=== PATIENT | female | born 1965 | race Caucasian/White ===

== ENCOUNTER 2023-07-03 09:41 | Outpatient (CLI) | payer OTHER ==
[2023-07-03 12:33] LABS: BASOPHILS % (AUTO) 0.4 %; EOSINOPHILS # (AUTO) 0.2 10^3/uL (0.0-0.7); EOSINOPHILS % (AUTO) 3.7 %; HCT - HEMATOCRIT 38.4 % (37.0-47.0); HGB - HEMOGLOBIN 12.6 g/dL (12.0-16.0); LYMPHOCYTES # (AUTO) 1.4 10^3/uL (1.5-3.5); LYMPHOCYTES % (AUTO) 29.7 %; MEAN CORPUSCULAR HEMOGLOBIN 31.3 pg (27.0-31.0); MEAN CORPUSCULAR HGB CONC 32.8 g/dL (32.0-36.0); MEAN CORPUSCULAR VOLUME 95.5 fL (81.0-99.0); MEAN PLATELET VOLUME 9.6 fL (7.9-10.8); MONOCYTES # (AUTO) 0.3 10^3/uL (0.0-1.0); MONOCYTES % (AUTO) 7.3 %; NEUTROPHILS # (AUTO) 2.7 10^3/uL (1.5-6.6); NEUTROPHILS % (AUTO) 58.7 %; PLT - PLATELET COUNT 229 10^3/uL (130-450); RED BLOOD COUNT 4.02 10^6/uL (4.20-5.40); RED CELL DISTRIBUTION WIDTH 13.2 % (12.0-15.0); WHITE BLOOD COUNT 4.6 x10^3/uL (4.8-10.8)
[2023-07-03 12:57] LABS: ALBUMIN 4.2 g/dL (3.2-5.5); ALBUMIN/GLOBULIN RATIO 1.9 (1.0-2.2); ALKALINE PHOSPHATASE 58 IU/L (42-121); ALT ALANINE AMINOTRANSFERASE 10 IU/L (10-60); AST ASPARTATE AMINOTRANSFERASE 19 IU/L (10-42); BILIRUBIN,TOTAL 0.6 mg/dL (0.2-1.0); BUN - BLOOD UREA NITROGEN 18 mg/dL (6-20); CALCIUM 9.2 mg/dL (8.5-10.3); CARBON DIOXIDE - CO2 30 mmol/L (21-32); CHLORIDE 106 mmol/L (101-111); CHOL/HDL RATIO 2.5 (<4.4); CHOLESTEROL 233 mg/dL; CREATININE 0.8 mg/dL (0.6-1.3); GFR - MDRD 73 (>89); GLUCOSE 104 mg/dL (74-104); HDL CHOLESTEROL 95 mg/dL; LDL CHOLESTEROL,CALCULATED 126 mg/dL; LDL/HDL RATIO 1.3 (<4.4); POTASSIUM 4.4 mmol/L (3.5-4.5); SODIUM 140 mmol/L (135-145); TOTAL PROTEIN 6.4 g/dL (6.4-8.9); TRIGLYCERIDES 60 mg/dL (48-352); VLDL CHOLESTEROL 12 mg/dL
[2023-07-03 13:18] LABS: THYROID STIMULATING HORMONE 1.29 uIU/mL (0.34-5.60)
== END 2023-07-03 09:42 | disposition home or self-care (01) ==
LOC: LAB.N 09:41
PROVIDERS: ATTEND Physician Assistant
DX: I10 Essential (primary) hypertension (principal); Z13.9 Encounter for screening, unspecified
CPT/HCPCS: 36415; 80053; 80061; 83721; 84443; 85025

== ENCOUNTER 2023-08-19 17:01 | Outpatient (CLI) | payer OTHER | END 2023-08-19 17:02 | disposition home or self-care (01) | LOC: LAB.N 17:01 | PROVIDERS: ATTEND Orthopaedic Surgery Adult Reconstructive Orthopaedic Surgery | DX: Z96.641 Presence of right artificial hip joint (principal) | CPT/HCPCS: 36415; 81599; 85651; 86140 ==

== ENCOUNTER 2023-09-10 09:53 | Outpatient (CLI) | payer OTHER ==
--- NOTE | 2023-09-10 10:13 | XRAY Report ---
PROCEDURE: Chest 2V INDICATIONS: SHORTNESS OF BREATH TECHNIQUE: 2 views of the chest were acquired. COMPARISON: None. FINDINGS: Surgical changes and devices: None. Lungs and pleura: Bilateral perihilar consolidations. No drainable pleural effusions. Mediastinum: Normal heart size Bones and chest wall: Degenerative changes. IMPRESSION: Bilateral perihilar consolidations. No drainable pleural effusions. Recommend surveillance imaging to exclude underlying mass. Report called to Jennie Workman. Reviewed by: Andrei Olivier MD on 09/10/2023 10:11 AM PDT Approved by: Andrei Olivier MD on 09/10/2023 10:11 AM PDT Station ID: [id number]
[2023-09-10 12:08] LABS: BASOPHILS % (AUTO) 0.1 %; HCT - HEMATOCRIT 33.1 % (37.0-47.0); HGB - HEMOGLOBIN 11.6 g/dL (12.0-16.0); LYMPHOCYTES % (AUTO) 2.7 %; MEAN CORPUSCULAR HEMOGLOBIN 30.4 pg (27.0-31.0); MEAN CORPUSCULAR VOLUME 86.9 fL (81.0-99.0); MEAN PLATELET VOLUME 10.6 fL (7.9-10.8); MONOCYTES % (AUTO) 0.7 %; NEUTROPHILS % (AUTO) 93.8 %; PLT - PLATELET COUNT 168 10^3/uL (130-450); RED BLOOD COUNT 3.81 10^6/uL (4.20-5.40); RED CELL DISTRIBUTION WIDTH 12.2 % (12.0-15.0); WHITE BLOOD COUNT 7.5 x10^3/uL (4.8-10.8)
[2023-09-10 12:10] LABS: ABNORMAL LYMPHS % (MANUAL) 0 %
[2023-09-10 12:31] LABS: ALBUMIN 2.8 g/dL (3.2-5.5); BILIRUBIN,TOTAL 0.7 mg/dL (0.2-1.0); CALCIUM 8.3 mg/dL (8.5-10.3); POTASSIUM 3.5 mmol/L (3.5-4.5); TOTAL PROTEIN 5.6 g/dL (6.4-8.9)
[2023-09-10 12:55] LABS: BAND NEUTROPHILS % (MANUAL) 15 %; LYMPHOCYTES # (MANUAL) 0.2 10^3/uL (1.5-3.5); LYMPHOCYTES % (MANUAL) 3 %; NEUTROPHILS # (MANUAL) 7.3 10^3/uL (1.5-6.6)
[2023-09-10 12:56] LABS: DIFFERENTIAL COMMENT MANUAL DIFFERENTIAL; PLATELET ESTIMATE, MANUAL NORMAL (130-450,000) (NORMAL); PLATELET MORPHOLOGY NORMAL APPEARANCE (NORMAL); RBC MORPHOLOGY (MULTIPLE) NORMAL APPEARANCE (NORMAL); WBC MORPHOLOGY (MULTIPLE) 2+ TOXIC GRANULATION (NORMAL)
== END 2023-09-10 09:54 | disposition home or self-care (01) ==
LOC: DI 09:53
PROVIDERS: ATTEND Nurse Practitioner
DX: R06.02 Shortness of breath (principal); R91.8 Other nonspecific abnormal finding of lung field
CPT/HCPCS: 36415; 80053; 85025; 85379

== ENCOUNTER 2023-09-10 13:37 | Inpatient (IN) | payer OTHER ==
[2023-09-10 14:42] LABS: BASOPHILS % (AUTO) 0.2 %; HCT - HEMATOCRIT 32.4 % (37.0-47.0); HGB - HEMOGLOBIN 11.6 g/dL (12.0-16.0); LYMPHOCYTES % (AUTO) 1.6 %; MEAN CORPUSCULAR HEMOGLOBIN 30.6 pg (27.0-31.0); MEAN CORPUSCULAR HGB CONC 35.8 g/dL (32.0-36.0); MEAN CORPUSCULAR VOLUME 85.5 fL (81.0-99.0); MEAN PLATELET VOLUME 9.3 fL (7.9-10.8); MONOCYTES % (AUTO) 0.7 %; NEUTROPHILS % (AUTO) 95.6 %; PLT - PLATELET COUNT 197 10^3/uL (130-450); RED BLOOD COUNT 3.79 10^6/uL (4.20-5.40); RED CELL DISTRIBUTION WIDTH 12.2 % (12.0-15.0); WHITE BLOOD COUNT 9.8 x10^3/uL (4.8-10.8)
[2023-09-10 14:46] LABS: ABNORMAL LYMPHS % (MANUAL) 0 %
[2023-09-10 14:59] LABS: LIPASE < 10 U/L (11-82); MAGNESIUM 1.4 mg/dL (1.7-2.3)
[2023-09-10 15:02] LABS: ALBUMIN 2.8 g/dL (3.2-5.5); ALBUMIN/GLOBULIN RATIO 0.9 (1.0-2.2); ALKALINE PHOSPHATASE 48 IU/L (42-121); ALT ALANINE AMINOTRANSFERASE 9 IU/L (10-60); AST ASPARTATE AMINOTRANSFERASE 20 IU/L (10-42); BILIRUBIN,TOTAL 0.7 mg/dL (0.2-1.0); BUN - BLOOD UREA NITROGEN 21 mg/dL (6-20); CALCIUM 8.3 mg/dL (8.5-10.3); CARBON DIOXIDE - CO2 22 mmol/L (21-32); CHLORIDE 82 mmol/L (101-111); CREATININE 0.9 mg/dL (0.6-1.3); GFR - MDRD 64 (>89); GLUCOSE 142 mg/dL (74-104); POTASSIUM 3.5 mmol/L (3.5-4.5); SODIUM 113 mmol/L (135-145); TOTAL PROTEIN 5.8 g/dL (6.4-8.9)
[2023-09-10 15:32] LABS: BAND NEUTROPHILS % (MANUAL) 23 %; LYMPHOCYTES # (MANUAL) 0.1 10^3/uL (1.5-3.5); LYMPHOCYTES % (MANUAL) 1 %; MONOCYTES # (MANUAL) 0.3 10^3/uL (0.0-1.0); NEUTROPHILS # (MANUAL) 9.4 10^3/uL (1.5-6.6)
[2023-09-10 15:34] LABS: DIFFERENTIAL COMMENT MANUAL DIFFERENTIAL; PLATELET ESTIMATE, MANUAL NORMAL (130-450,000) (NORMAL); PLATELET MORPHOLOGY NORMAL APPEARANCE (NORMAL); RBC MORPHOLOGY (MULTIPLE) NORMAL APPEARANCE (NORMAL); WBC MORPHOLOGY (MULTIPLE) 2+ TOXIC GRANULATION (NORMAL)
--- NOTE | 2023-09-10 17:09 | ED Physician Documentation ---
PD HPI URI - Stated complaint Stated Complaint: ABNORMAL LAB/XRAY - Chief complaint Chief Complaint: General - History obtained from History obtained from: Patient - History of Present Illness Timing - onset: How many weeks ago (onset just over a week ago of fevers, weakness, aches, cough and dyspnea. Seen at [facility] and had positive test for Influenza. Taking ibuprofen and tylenol and robitussin. No Rx given. Has had increased cough and dyspnea and also now sluggish thought procoess and some confusion.) Timing duration: Weeks (1) Timing details: Gradual onset, Still present Associated symptoms: Fever, Chills, Nasal congestion, Productive cough, NVD Contributing factors: Sick contact. No: Travel, Immunocompromised, COPD / asthma Similar symptoms before: Has not had sx before Recently seen: Clinic (clinic a week ago with Dx Influenza. Seen today again and had labs and CXR ordered. Referred to ER due to results of low sodium and abn CXR.) Review of Systems Constitutional: reports: Fever, Chills, Myalgias, Fatigue Nose: reports: Congestion Cardiac: denies: Chest pain / pressure Respiratory: reports: Dyspnea, Cough GI: reports: Nausea, Vomiting, Diarrhea. 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 : None HEENT: None Psych: None Musculoskeletal: None Derm: None - Past Surgical History Past Surgical History: Yes Ortho: Hip replacement - Present Medications Home Medications: Ambulatory Orders Medication Instructions Recorded Confirmed No Known Home Medications 09/10/23 09/10/23 - Allergies Allergies/Adverse Reactions: Allergies Allergy/AdvReac Type Severity Reaction Status Date / Time No Known Drug Allergies Allergy Verified 09/10/23 14:14 - Social History Does the pt smoke?: No Smoking Status: Never smoker Does the pt drink ETOH?: No Does the pt have substance abuse?: No - Immunizations Immunizations are current?: Yes - POLST Patient has POLST: No PD ED PE NORMAL - Vitals Vital signs reviewed: Yes - General General: Alert and oriented X 3 (she is alert and conversant but sluggish responses and slightly sleepy. ), No acute distress, Well developed/nourished - HEENT HEENT: PERRL, EOMI. No: Ears normal (right ear normal. Left canal is okay but TM with redness and apparent some purulence behind TM. No poerforation. ) - Neck Neck: Supple, no meningeal sign, No adenopathy - Cardiac Cardiac: RRR, No murmur - Respiratory Respiratory: No respiratory distress. No: Clear bilaterally (some exp wheezing diffuse and coarse sounds both mid lung jain. ) - Abdomen Abdomen: Soft, Non tender - Derm Derm: Normal color, Warm and dry - Extremities Extremities: Normal ROM s pain, No edema, No calf tenderness / cord - Neuro Neuro: No motor deficit, No sensory deficit, Normal speech Results - Vitals Vitals: Vital Signs - 24 hr 09/10/23 09/10/23 09/10/23 14:06 16:38 17:03 Temperature 37.4 C Heart Rate 85 83 82 Respiratory 16 24 18 Rate Blood Pressure 139/73 H 127/75 O2 Saturation 94 95 Oxygen O2 Source Room air - Labs Labs: Laboratory Tests 09/10/23 09/10/23 09/10/23 14:36 14:36 16:38 WBC 9.8 RBC 3.79 L Hgb 11.6 L Hct 32.4 L MCV 85.5 MCH 30.6 MCHC 35.8 RDW 12.2 Plt Count 197 MPV 9.3 Neut # (Auto) Not Reportable Lymph # (Auto) Not Reportable [place] # (Auto) Not Reportable Eos # (Auto) Not Reportable Baso # (Auto) Not Reportable Absolute Nucleated RBC Not Reportable Total Counted 100 Band Neuts % (Manual) 23 H Abnorm Lymph % (Manual) 0 Nucleated RBC % Not Reportable Neutrophils # (Manual) 9.4 H Lymphocytes # (Manual) 0.1 L Monocytes # (Manual) 0.3 Eosinophils # (Manual) 0.0 Basophils # (Manual) 0.0 Differential Comment MANUAL DIFFERENTIAL WBC Morphology 2+ TOXIC GRANULATION Platelet Estimate NORMAL (130-450,000) Platelet Morphology NORMAL APPEARANCE RBC Morph Micro Appear NORMAL APPEARANCE Sodium 113 L* 113 L* Potassium 3.5 Chloride 82 L Carbon Dioxide 22 Anion Gap 9.0 BUN 21 H Creatinine 0.9 Estimated GFR (MDRD) 64 L Glucose 142 H Calcium 8.3 L Magnesium 1.4 L Total Bilirubin 0.7 AST 20 ALT 9 L Alkaline Phosphatase 48 Total Protein 5.8 L Albumin 2.8 L Globulin 3.0 Albumin/Globulin Ratio 0.9 L Lipase < 10 L - Rads (name of study) chest xray Relevant Findings:: EMP independent interpretation of test (this was obtained outpt and my view is signfiicant bilateral infiltrates, right middle lobe and left lingula. ) PD Medical Decision Making - ED course Complexity details: considered differential (flu illness with cough, V/D and poor intake c/w dehydration and insensible losses with electrolytes. Had low sodium outpt lab, which was confirmed with repeat test in ER. Sodium 113.), d/w patient, d/w infrastructure consultant (Hospitalist Dr. Noel, who will see pt in the ER and place in hospital. ) Reviewed Lab Results: WBC normal at 9.8 but has 23% bandemia. This likely relates to pneumonia and also left otitis media. Does not have menigeal signs. Other labs with potassium 3.5, mag 1.4, sodium 113. Renal function is okay. Chest xray done outpt just ea rlir to ED check in showing signficant bilateral infiltrates. ED course: given some fluid bolus for hydration with NS 500 ml. I did not want to be too aggressive with sodium replacement. Then given mainenance infusion. Also given mag IV. Gave Rocephin and ZIthromax for pneumonia and otitis. Departure - Departure Disposition: 66 [facility] DC/Xfer Clinical Impression: Dehydration, Acute hyponatremia, Confusion and disorientation Bilateral pneumonia Qualifiers: Pneumonia type: due to unspecified organism Lung location: unspecified part of lung Qualified Code(s): J18.9 - Pneumonia, unspecified organism Otitis media Qualifiers: Otitis media type: suppurative Chronicity: acute Laterality: left Recurrence: non-recurrent Spontaneous tympanic membrane rupture: without spontaneous rupture Qualified Code(s): H66.002 - Acute suppurative otitis media without spontaneous rupture of ear drum, left ear Condition: Stable Record reviewed to determine appropriate education?: Yes Discharge Date/Time: 09/10/23 18:35
[2023-09-10] MEDS: KETOROLAC 15 MG/ML VIAL IVP STA (17:12)
[2023-09-10] MEDS: HYDROmorphone 0.5 MG/0.5 ML SYRINGE IVP STA (17:14)
[2023-09-10] MEDS: SODIUM CHLORIDE 0.9% 500 ML IV STA (17:31)
[2023-09-10] MEDS: ALBUTEROL 1 PUFF INH STA (17:31)
[2023-09-10] MEDS: cefTRIAXone 1 GM VIAL IVP STA (17:35)
[2023-09-10] MEDS: MAGNESIUM SULFATE 2 GRAM 2 GM/50 ML BAG IV ONE (17:42)
--- NOTE | 2023-09-10 18:00 | HISTORY & PHYSICAL EXAMINATION ---
Chief Complaint - Chief Complaint Chief Complaint: Abnormal Chest x-ray History of Present Illness - Admitted From Admitted From:: Emergency Room - History Obtained From Records Reviewed: Yes History obtained from: Patient and ER Physician, Dr. Kris Wilkins - History of Present Illness HPI Comment/Other: Yodit Noriega is a 58-year-old woman who presented to the emergency room because of an abnormal x-ray. She reports she recently had influenza. She reports she has not been able to keep any food down recently and has had several episodes of vomiting. Chest x-ray revealed opacities in her right upper lobe, right middle lobe, right lower lobe left upper lobe, lingula and lower lobe.She was evaluated at a local clinic and diagnosed with influenza B. Patient is alert and answering all questions. She does complain of weakness. Laboratory workup revealed a serum sodium of 113. White blood cell count is normal at 9.8K and differential revealed 23 bands. History - Past Medical History Cardiovascular: reports: None Respiratory: reports: None Neuro: reports: None Endocrine/Autoimmune: reports: None GI: reports: None LEAD OPERATOR: reports: None : reports: None HEENT: reports: None Psych: reports: None Musculoskeletal: reports: None Derm: reports: None MRSA Hx?: No - Past Surgical History Ortho: reports: Hip replacement - Substance History Use: Uses substance without health or social issues: Alcohol - POLST Patient has POLST: No Meds/Allgy - Home Medications Home Medications: Ambulatory Orders Medication Instructions Recorded Confirmed No Known Home Medications 09/10/23 09/10/23 - Allergies Allergies/Adverse Reactions: Allergies Allergy/AdvReac Type Severity Reaction Status Date / Time No Known Drug Allergies Allergy Verified 09/10/23 14:14 Review of Systems - Constitutional Constitutional: reports: Fatigue, Malaise, Weakness - Gastrointestinal Gastrointestinal: reports: Diarrhea, Nausea, Vomiting Exam - Vital Signs Vital Signs: Vital Signs x48h Temp Pulse Resp BP Pulse Ox 09/10/23 17:03 82 18 09/10/23 16:38 83 24 127/75 95 09/10/23 14:06 37.4 C 85 16 139/73 H 94 - Physical Exam General Appearance: positive: No acute distress, Alert Eyes Bilateral: positive: Normal inspection, PERRL Neck: positive: No JVD, Trachea midline Respiratory: positive: Other (Good air exchange in all lung jain no wheezing no crackles.) Cardiovascular: positive: Other (Positive S1-S2 no extra heart sounds.) Abdomen: positive: Non-tender, Nml bowel sounds, No distention Extremities: positive: Non-tender, No pedal edema Neurologic/Psychiatric: positive: Oriented x3, Motor nml Conclusion/Plan - Problem List (1) Hyponatremia Conclusion/Plan: Patient currently has severe hyponatremia with a serum sodium of 113. This most likely is a chronic process. Severe hyponatremia can be life-threatening and warrants admission to an intensive care unit. Hyponatremia of this degree can have significant consequences to include seizure and possibly osmotic demyelination syndrome if the serum sodium is corrected too rapidly. Goal is to correct the serum sodium by 3-6 mEq over the next 24 hours. (2) Influenza Conclusion/Plan: Patient recently diagnosed with influenza. Influenza may be the cause of her abnormalities on her chest x-ray. Treatment is supportive at this time. I cannot exclude a secondary pneumonia and empiric treatment will be initiated with ceftriaxone and doxycycline. - Lab Results Fish Bones: 09/11/23 03:31 09/12/23 12:07
[2023-09-10] MEDS: AZITHROMYCIN INJ 500 MG in SODIUM CHLORIDE 0.9% 250 ML IV STA (18:46)
[2023-09-10] MEDS: SODIUM CHLORIDE 0.9% 1,000 ML IV STA (18:49)
[2023-09-10] MEDS ORDERED: ONDANSETRON ODT 4 MG TABLET TL PRN (18:59)
[2023-09-10] MEDS: ONDANSETRON 4 MG/2 ML VIAL IVP PRN (19:05)
[2023-09-10] MEDS: SODIUM CHLORIDE FLUSH 0.9% 10 ML SYRINGE IVP PRN (19:05)
[2023-09-10] MEDS ORDERED: POTASSIUM CHLORIDE 20 MEQ TABLET PO SCH (20:00)
[2023-09-10] MEDS: POTASSIUM CHLOR 10 MEQ/100 ML 10 MEQ/100 ML BAG IV SCH (20:49)
[2023-09-10] MEDS: ENOXAPARIN 40 MG/0.4 ML SYRINGE SUBQ SCH (20:49)
[2023-09-10 20:57] LABS: BILIRUBIN,URINE NEGATIVE (NEGATIVE); GLUCOSE, URINE (UA) NEGATIVE (NEGATIVE); KETONES,URINE (UA) NEGATIVE (NEGATIVE); LEUKOCYTE ESTERASE, URINE NEGATIVE (NEGATIVE); NITRITE,URINE NEGATIVE (NEGATIVE); OCCULT BLOOD,URINE SMALL (NEGATIVE); PROTEIN,URINE 30 mg/dL (NEGATIVE); UROBILINOGEN,URINE 0.2 (NORMAL) E.U./dL (NORMAL)
[2023-09-10 21:10] LABS: CLARITY,URINE HAZY (CLEAR)
[2023-09-10 21:14] LABS: AMORPHOUS SEDIMENT,UR Rare /LPF; BACTERIA,URINE Few /HPF (None Seen); RBC,URINE 0-5 /HPF (0-5); SQUAMOUS EPITHELIAL CELL,UR MANY Squamous (<= Few); WBC,URINE 0-3 /HPF (0-5)
[2023-09-10] MEDS: cefTRIAXone 1 GM in SODIUM CHLORIDE 0.9% MINIBAG 100 ML IV SCH (22:35)
[2023-09-11] MEDS: SODIUM CHLORIDE FLUSH 0.9% 10 ML SYRINGE IVP SCH (00:16)
[2023-09-11 03:45] LABS: BASOPHILS % (AUTO) 0.2 %; HCT - HEMATOCRIT 29.2 % (37.0-47.0); HGB - HEMOGLOBIN 10.6 g/dL (12.0-16.0); LYMPHOCYTES % (AUTO) 1.8 %; MEAN CORPUSCULAR HEMOGLOBIN 31.5 pg (27.0-31.0); MEAN CORPUSCULAR HGB CONC 36.3 g/dL (32.0-36.0); MEAN CORPUSCULAR VOLUME 86.6 fL (81.0-99.0); MEAN PLATELET VOLUME 9.6 fL (7.9-10.8); MONOCYTES % (AUTO) 0.9 %; NEUTROPHILS % (AUTO) 94.3 %; PLT - PLATELET COUNT 203 10^3/uL (130-450); RED BLOOD COUNT 3.37 10^6/uL (4.20-5.40); RED CELL DISTRIBUTION WIDTH 12.2 % (12.0-15.0); WHITE BLOOD COUNT 9.6 x10^3/uL (4.8-10.8)
[2023-09-11 03:48] LABS: CALCIUM, IONIZED 1.06 mmol/L (1.15-1.33); VBG PH 7.444 (7.31-7.41)
[2023-09-11 03:53] LABS: ABNORMAL LYMPHS % (MANUAL) 0 %
[2023-09-11 03:59] LABS: MAGNESIUM 1.9 mg/dL (1.7-2.3); PHOSPHORUS 3.7 mg/dL (2.5-5.0)
[2023-09-11 04:21] LABS: CREATININE 0.9 mg/dL (0.6-1.3); POTASSIUM 3.8 mmol/L (3.5-4.5)
[2023-09-11 04:31] LABS: BAND NEUTROPHILS % (MANUAL) 24 %; DIFFERENTIAL COMMENT MANUAL DIFFERENTIAL; LYMPHOCYTES # (MANUAL) 0.2 10^3/uL (1.5-3.5); LYMPHOCYTES % (MANUAL) 2 %; MONOCYTES # (MANUAL) 0.1 10^3/uL (0.0-1.0); NEUTROPHILS # (MANUAL) 9.3 10^3/uL (1.5-6.6); PLATELET ESTIMATE, MANUAL NORMAL (130-450,000) (NORMAL); RBC MORPHOLOGY (MULTIPLE) NORMAL APPEARANCE (NORMAL)
[2023-09-11] MEDS: POTASSIUM CHLOR 10 MEQ/100 ML 10 MEQ/100 ML BAG IV SCH (04:47)
[2023-09-11] MEDS: CALCIUM CARBONATE CHEW 500 MG TABLET PO SCH (04:47)
[2023-09-11 07:47] LABS: CALCIUM 8.6 mg/dL (8.5-10.3); CREATININE 0.8 mg/dL (0.6-1.3); POTASSIUM 4.1 mmol/L (3.5-4.5)
[2023-09-11] MEDS: DEXTROSE 5% 1,000 ML IV SCH ×4 (08:26→23:08)
[2023-09-11] MEDS: DOXYCYCLINE INJ 100 MG in SODIUM CHLORIDE 0.9% MINIBAG 100 ML IV SCH (08:44)
[2023-09-11] MEDS: SODIUM CHLORIDE 0.9% IV ONE (12:04)
[2023-09-11] MEDS: DESMOPRESSIN IV ONE (12:04)
--- NOTE | 2023-09-11 12:13 | PHARMACY PROGRESS NOTE ---
- Best Possible Medication History Admit Date and Time: 09/10/23 4007 Processed by: Nursing Medications reviewed in ED?: Yes Medication History completed: Yes As the person ultimately responsible for medication therapy, providers are able to order a medication from an existing home medication list in [facility] via the "Reconcile Routine" prior to Confirmation of that medication by production support specialist. Such practice is discouraged except when the physician, in their clinical judgment, deems that a medical need exists for a medication without regard to previous use.
[2023-09-11] MEDS: DEXTROSE 5% 500 ML IV ONE ×2 (14:10→17:14)
[2023-09-11] MEDS: POTASSIUM CHLORIDE 20 MEQ TABLET PO SCH (14:43)
[2023-09-11] MEDS ORDERED: DEXTROSE 5% 500 ML IV ONE (15:08)
[2023-09-11] MEDS: ACETAMINOPHEN 325 MG TABLET PO PRN (20:28)
[2023-09-11] MEDS: cefTRIAXone 2 GM in SODIUM CHLORIDE 0.9% MINIBAG 100 ML IV SCH (20:29)
[2023-09-11] MEDS ORDERED: SODIUM CHLORIDE 0.9% IV ONE (21:00)
[2023-09-11] MEDS ORDERED: DESMOPRESSIN IV ONE (21:00)
[2023-09-11] MEDS: DESMOPRESSIN 4 MCG/ML AMP IVP SCH (21:28)
--- NOTE | 2023-09-11 22:30 | PROVIDER PROGRESS NOTE ---
Assessment/Plan - Problem List (1) Hyponatremia Assessment/Plan: Patient currently has severe hyponatremia with a serum sodium of 113. This most likely is a chronic process. Severe hyponatremia can be life-threatening and warrants admission to an intensive care unit. Hyponatremia of this degree can have significant consequences to include seizure and possibly osmotic demyelination syndrome if the serum sodium is corrected too rapidly. Goal is to correct the serum sodium by 3-6 mEq over the next 24 hours. Overnight, patient's serum sodium increased very rapidly and this morning her serum sodium was 124. Plan is to give D5W in addition to DDAVP as needed throughout the day with goal of decreasing the serum sodium to [id number] over the next 24 hours. Over the next 24 hours patient will require frequent serum sodiums to be drawn. She is at moderate/high risk of developing osmotic demyelination syndrome with a rapid increase in her serum sodium. Patient remains critically ill and continues to warrant treatment in an ICU setting. (2) Influenza Conclusion/Plan: Patient recently diagnosed with influenza. Influenza may be the cause of her abnormalities on her chest x-ray. Treatment is supportive at this time. I cannot exclude a secondary pneumonia and empiric treatment will be initiated with ceftriaxone and doxycycline. - Current Meds Current Meds: Current Medications Generic Name Dose Route Start Last Admin Trade Name Freq PRN Reason Stop Dose Admin Acetaminophen 650 mg 09/11/23 20:14 09/11/23 20:28 Acetaminophen 325 Mg Tablet PO 650 mg Q4HR PRN Administration Pain or Fever > 38C (100.4F) Enoxaparin Sodium 40 mg 09/10/23 21:00 09/11/23 20:29 Enoxaparin 40 Mg/0.4 Ml Syringe SUBQ 40 mg QPM BRIDGER Administration Ceftriaxone Sodium 2 gm/ 100 mls @ 200 mls/hr 09/11/23 21:00 09/11/23 21:11 Sodium Chloride IV Infused DAILY BRIDGER Infusion Doxycycline Hyclate 100 mg/ 100 mls @ 100 mls/hr 09/11/23 09:00 09/11/23 21:20 Sodium Chloride IV 100 mls/hr BID BRIDGER Administration Dextrose 1,000 mls @ 125 mls/hr 09/11/23 11:39 09/11/23 21:19 D5w IV 125 mls/hr .Q8H BRIDGER Administration Ondansetron HCl 4 mg 09/10/23 19:00 09/10/23 19:05 Ondansetron 4 Mg/2 Ml Vial IVP 4 mg Q4HR PRN Administration Nausea / Vomiting Sodium Chloride 10 ml 09/11/23 01:00 09/11/23 20:30 Sodium Chloride Flush 0.9% 10 Ml Syringe IVP 10 ml 0100,0900,1700 BRIDGER Administration Sodium Chloride 10 ml 09/10/23 17:50 09/11/23 03:25 Sodium Chloride Flush 0.9% 10 Ml Syringe IVP 10 ml PRN PRN Administration NEEDED PER PROVIDER ORDERS - Lab Result Fish Bone Diagrams: 09/11/23 03:31 09/12/23 17:02 - Additional Planning My Orders: My Active Orders 09/11/23 01:00 Sodium Chloride Flush 0.9% [Normal Saline Flush 0.9%] 10 ml IVP 0100,0900,1700 09/11/23 09:00 Doxycycline Inj [Vibramycin Inj] 100 mg Sodium Chloride 0.9% Minibag [Normal Saline 0.9% Minibag] 100 ml IV BID 09/11/23 Lunch Regular Diet [DIET] 09/11/23 11:39 Dextrose 5% [D5w] 1,000 ml IV 125 mls/hr 09/11/23 14:39 Miscellaenous Nursing Order [RC] ONCE 09/11/23 16:47 Miscellaenous Nursing Order [RC] ONCE 09/11/23 20:14 Acetaminophen [Tylenol] 650 mg PO Q4HR PRN 09/11/23 21:00 cefTRIAXone [Rocephin] 2 gm Sodium Chloride 0.9% Minibag [Normal Saline 0.9% Minibag] 100 ml IV DAILY 09/11/23 22:16 POTASSIUM [CHEM] Timed SODIUM [CHEM] Routine 09/12/23 05:00 CALCIUM, IONIZED ([facility]) [BG] DAILYLAB MAGNESIUM [CHEM] DAILYLAB PHOSPHORUS [CHEM] DAILYLAB 09/13/23 05:00 CALCIUM, IONIZED ([facility]) [BG] DAILYLAB MAGNESIUM [CHEM] DAILYLAB PHOSPHORUS [CHEM] DAILYLAB Subjective - Subjective Patient Reports: Other (Alert. Continues to complain of intermittent nausea. Denies recent vomiting. Denies chest pain shortness of breath. No other complaints at this time.) Objective Vital Signs: Vital Signs - 24 hr 09/10/23 09/11/23 09/11/23 23:00 00:00 01:00 Temperature 36.4 C L Heart Rate [ 72 73 82 Monitoring electrodes] Respiratory 30 H 27 H 29 H Rate Blood Pressure 103/56 L 119/76 119/63 [Right Brachial artery] O2 Saturation 92 94 92 If not protocol : Oxygen Flow, liters/minute 09/11/23 09/11/23 09/11/23 02:00 03:00 04:00 Temperature 36.9 C Heart Rate [ 72 72 75 Monitoring electrodes] Respiratory 26 H 31 H 21 Rate Blood Pressure 102/59 L 98/70 93/57 L [Right Brachial artery] O2 Saturation 93 92 91 L If not protocol : Oxygen Flow, liters/minute 09/11/23 09/11/23 09/11/23 05:00 06:00 07:00 Temperature Heart Rate [ 83 84 84 Monitoring electrodes] Respiratory 30 H 36 H 35 H Rate Blood Pressure 115/60 114/68 115/68 [Right Brachial artery] O2 Saturation 94 94 94 If not protocol : Oxygen Flow, liters/minute 09/11/23 09/11/23 09/11/23 09:00 13:00 17:00 Temperature 98.3 C H 36.8 C 36.9 C Heart Rate [ 77 80 Monitoring electrodes] Respiratory 32 H 31 H 19 Rate Blood Pressure 116/61 115/63 127/60 [Right Brachial artery] O2 Saturation 92 93 92 If not protocol : Oxygen Flow, liters/minute 09/11/23 09/11/23 09/11/23 19:46 19:50 20:00 Temperature 36.9 C Heart Rate [ 85 Monitoring electrodes] Respiratory 33 H 20 Rate Blood Pressure 150/80 H [Right Brachial artery] O2 Saturation 91 L 96 97 If not protocol 2 2 : Oxygen Flow, liters/minute 09/11/23 09/11/23 21:00 22:00 Temperature Heart Rate [ 81 68 Monitoring electrodes] Respiratory 26 H 31 H Rate Blood Pressure 136/71 H 120/69 [Right Brachial artery] O2 Saturation 95 95 If not protocol 2 2 : Oxygen Flow, liters/minute Oxygen O2 Source Nasal cannula I&O (Last 24 Hrs): Intake and Output Totals x24h 09/09/23 09/10/23 09/11/23 23:59 23:59 23:59 Intake Total 1102.5 6474.503 Output Total 550 5125 Balance 552.5 1349.503 General: Alert, Oriented x3, No acute distress HEENT: Atraumatic Neck: Supple, No JVD Neuro: Alert, Non Focal Cardiovascular: Other (Positive S1-S2 no extra heart sounds.) Respiratory: Other (Good air exchange in all lung jain no wheezing no crackles.) Abdomen: Other (Positive S1-S2 no extra heart sounds) Extremities: No cyanosis, No edema Skin: No rashes - Results Results: Laboratory Results WBC 9.6 x10^3/uL (4.8-10.8) 09/11/23 03:31 RBC 3.37 10^6/uL (4.20-5.40) L 09/11/23 03:31 Hgb 10.6 g/dL (12.0-16.0) L 09/11/23 03:31 Hct 29.2 % (37.0-47.0) L 09/11/23 03:31 MCV 86.6 fL (81.0-99.0) 09/11/23 03:31 MCH 31.5 pg (27.0-31.0) H 09/11/23 03:31 MCHC 36.3 g/dL (32.0-36.0) H 09/11/23 03:31 RDW 12.2 % (12.0-15.0) 09/11/23 03:31 Plt Count 203 10^3/uL (130-450) 09/11/23 03:31 MPV 9.6 fL (7.9-10.8) 09/11/23 03:31 Neut # (Auto) Not Reportable 09/11/23 03:31 Lymph # (Auto) Not Reportable 09/11/23 03:31 [place] # (Auto) Not Reportable 09/11/23 03:31 Eos # (Auto) Not Reportable 09/11/23 03:31 Baso # (Auto) Not Reportable 09/11/23 03:31 Absolute Nucleated RBC Not Reportable 09/11/23 03:31 Total Counted 100 09/11/23 03:31 Band Neuts % (Manual) 24 % (0-10) H 09/11/23 03:31 Abnorm Lymph % (Manual) 0 % 09/11/23 03:31 Nucleated RBC % Not Reportable 09/11/23 03:31 Neutrophils # (Manual) 9.3 10^3/uL (1.5-6.6) H 09/11/23 03:31 Lymphocytes # (Manual) 0.2 10^3/uL (1.5-3.5) L 09/11/23 03:31 Monocytes # (Manual) 0.1 10^3/uL (0.0-1.0) 09/11/23 03:31 Eosinophils # (Manual) 0.0 10^3/uL (0-0.7) 09/11/23 03:31 Basophils # (Manual) 0.0 10^3/uL (0-0.1) 09/11/23 03:31 Differential Comment MANUAL DIFFERENTIAL 09/11/23 03:31 WBC Morphology 2+ TOXIC GRANULATION (NORMAL) 09/10/23 14:36 Platelet Estimate NORMAL (130-450,000) (NORMAL) 09/11/23 03:31 Platelet Morphology NORMAL APPEARANCE (NORMAL) 09/10/23 14:36 RBC Morph Micro Appear NORMAL APPEARANCE (NORMAL) 09/11/23 03:31 VBG pH 7.444 (7.31-7.41) H 09/11/23 03:31 Ionized Calcium 1.06 mmol/L (1.15-1.33) L 09/11/23 03:31 Sodium 120 mmol/L (135-145) L* 09/11/23 19:28 Potassium 3.4 mmol/L (3.5-4.5) L 09/11/23 13:31 Chloride 93 mmol/L (101-111) L 09/11/23 07:28 Carbon Dioxide 22 mmol/L (21-32) 09/11/23 07:28 Anion Gap 9.0 (6-13) 09/11/23 07:28 BUN 18 mg/dL (6-20) 09/11/23 07:28 Creatinine 0.8 mg/dL (0.6-1.3) 09/11/23 07:28 Estimated GFR (MDRD) 73 (>89) L 09/11/23 07:28 Glucose 90 mg/dL (74-104) 09/11/23 07:28 Calcium 8.6 mg/dL (8.5-10.3) 09/11/23 07:28 Phosphorus 3.7 mg/dL (2.5-5.0) 09/11/23 03:31 Magnesium 1.9 mg/dL (1.7-2.3) 09/11/23 03:31 Total Bilirubin 0.7 mg/dL (0.2-1.0) 09/10/23 14:36 AST 20 IU/L (10-42) 09/10/23 14:36 ALT 9 IU/L (10-60) L 09/10/23 14:36 Alkaline Phosphatase 48 IU/L (42-121) 09/10/23 14:36 Total Protein 5.8 g/dL (6.4-8.9) L 09/10/23 14:36 Albumin 2.8 g/dL (3.2-5.5) L 09/10/23 14:36 Globulin 3.0 g/dL (2.1-4.2) 09/10/23 14:36 Albumin/Globulin Ratio 0.9 (1.0-2.2) L 09/10/23 14:36 Lipase < 10 U/L (11-82) L 09/10/23 14:36 Urine Color YELLOW 09/10/23 20:30 Urine Clarity HAZY (CLEAR) 09/10/23 20:30 Urine pH 6.0 PH (5.0-7.5) 09/10/23 20:30 Ur Specific [place] 1.015 (1.002-1.030) 09/10/23 20:30 Urine Protein 30 mg/dL (NEGATIVE) H 09/10/23 20:30 Urine Glucose (UA) NEGATIVE mg/dL (NEGATIVE) 09/10/23 20:30 Urine Ketones NEGATIVE mg/dL (NEGATIVE) 09/10/23 20:30 Urine Occult Blood SMALL (NEGATIVE) H 09/10/23 20:30 Urine Nitrite NEGATIVE (NEGATIVE) 09/10/23 20:30 Urine Bilirubin NEGATIVE (NEGATIVE) 09/10/23 20:30 Urine Urobilinogen 0.2 (NORMAL) E.U./dL (NORMAL) 09/10/23 20:30 Ur Leukocyte Esterase NEGATIVE (NEGATIVE) 09/10/23 20:30 Urine RBC 0-5 /HPF (0-5) 09/10/23 20:30 Urine WBC 0-3 /HPF (0-5) 09/10/23 20:30 Ur Squamous Epith Cells MANY Squamous (<= Few) H 09/10/23 20:30 Amorphous Sediment Rare /LPF 09/10/23 20:30 Urine Bacteria Few /HPF (None Seen) 09/10/23 20:30 Ur Microscopic Review INDICATED 09/10/23 20:30 Urine Culture Comments NOT INDICATED 09/10/23 20:30 Nasal Screen MRSA (PCR) NEGATIVE (NEGATIVE) 09/10/23 18:36
[2023-09-11] MEDS: POTASSIUM CHLORIDE 20 MEQ TABLET PO ONE (23:05)
[2023-09-12 03:37] LABS: CALCIUM, IONIZED 1.08 mmol/L (1.15-1.33); VBG PH 7.472 (7.31-7.41)
[2023-09-12 03:46] LABS: MAGNESIUM 1.6 mg/dL (1.7-2.3)
[2023-09-12 03:51] LABS: PHOSPHORUS 3.4 mg/dL (2.5-5.0)
[2023-09-12] MEDS: POTASSIUM CHLORIDE 20 MEQ TABLET PO ONE (05:44)
[2023-09-12] MEDS: CALCIUM CARBONATE CHEW 500 MG TABLET PO SCH ×2 (05:46→18:37)
[2023-09-12] MEDS: MAGNESIUM OXIDE 400 MG TABLET PO ONE (05:48)
[2023-09-12] MEDS: polyethylene glycoL 3350 17 GM PACKET PO SCH (08:29)
[2023-09-12 12:20] LABS: MAGNESIUM 1.5 mg/dL (1.7-2.3)
[2023-09-12 12:26] LABS: PHOSPHORUS 3.5 mg/dL (2.5-5.0)
[2023-09-12 12:29] LABS: CALCIUM 8.1 mg/dL (8.5-10.3); CREATININE 0.6 mg/dL (0.6-1.3)
[2023-09-12] MEDS: MAGNESIUM OXIDE 400 MG TABLET PO SCH (14:37)
--- NOTE | 2023-09-12 16:54 | PROVIDER PROGRESS NOTE ---
Assessment/Plan - Problem List (1) Hyponatremia Assessment/Plan: Patient currently has severe hyponatremia with a serum sodium of 113. This most likely is a chronic process. Severe hyponatremia can be life-threatening and warrants admission to an intensive care unit. Hyponatremia of this degree can have significant consequences to include seizure and possibly osmotic demyelination syndrome if the serum sodium is corrected too rapidly. Overnight the patient's serum sodium remained between 118 and 120. Plan for today is to withhold any DDAVP and discontinue the continuous drip of D5W. Patient will also be placed on a fluid restriction of 1500 mL/day. We will continue to monitor the serum sodium closely with goal of increasing the serum sodium by 3 to 6 mEq over the next 24 hours. (2) Influenza Conclusion/Plan: Patient recently diagnosed with influenza. Influenza may be the cause of her abnormalities on her chest x-ray. Treatment is supportive at this time. Continue ceftriaxone and doxycycline for empiric antibiotic coverage. - Current Meds Current Meds: Current Medications Generic Name Dose Route Start Last Admin Trade Name Freq PRN Reason Stop Dose Admin Acetaminophen 650 mg 09/11/23 20:14 09/12/23 16:27 Acetaminophen 325 Mg Tablet PO 650 mg Q4HR PRN Administration Pain or Fever > 38C (100.4F) Enoxaparin Sodium 40 mg 09/10/23 21:00 09/11/23 20:29 Enoxaparin 40 Mg/0.4 Ml Syringe SUBQ 40 mg QPM BRIDGER Administration Ceftriaxone Sodium 2 gm/ 100 mls @ 200 mls/hr 09/11/23 21:00 09/12/23 10:40 Sodium Chloride IV Infused DAILY BRIDGER Infusion Doxycycline Hyclate 100 mg/ 100 mls @ 100 mls/hr 09/11/23 09:00 09/12/23 09:35 Sodium Chloride IV Infused BID BRIDGER Infusion Magnesium Oxide 400 mg 09/12/23 14:00 09/12/23 14:37 Magnesium Oxide 400 Mg Tablet PO 09/12/23 20:01 400 mg Q6H BRIDGER Administration Protocol Ondansetron HCl 4 mg 09/10/23 19:00 09/10/23 19:05 Ondansetron 4 Mg/2 Ml Vial IVP 4 mg Q4HR PRN Administration Nausea / Vomiting Polyethylene Glycol 17 gm 09/12/23 09:00 09/12/23 08:29 Polyethylene Glycol 3350 17 Gm Packet PO Not Given DAILY BRIDGER Sodium Chloride 10 ml 09/11/23 01:00 09/12/23 16:30 Sodium Chloride Flush 0.9% 10 Ml Syringe IVP 10 ml 0100,0900,1700 BRIDGER Administration Sodium Chloride 10 ml 09/10/23 17:50 09/11/23 03:25 Sodium Chloride Flush 0.9% 10 Ml Syringe IVP 10 ml PRN PRN Administration NEEDED PER PROVIDER ORDERS - Lab Result Fish Bone Diagrams: 09/11/23 03:31 09/12/23 17:02 - Additional Planning My Orders: My Active Orders 09/11/23 20:14 Acetaminophen [Tylenol] 650 mg PO Q4HR PRN 09/11/23 21:00 [id number] [Rocephin] 2 gm Sodium Chloride 0.9% Minibag [Normal Saline 0.9% Minibag] 100 ml IV DAILY 09/12/23 09:00 polyethylene glycoL 3350 [Miralax] 17 gm PO DAILY 09/12/23 10:39 Fluid Restriction [RC] IOSHIFT 09/12/23 10:40 Daily Weight [RC] 0600 Miscellaenous Nursing Order [RC] QSHIFT 09/12/23 14:00 Magnesium Oxide [Mag Ox] 400 mg PO Q6H 09/12/23 14:20 Zolpidem [Ambien] 5 mg PO QPM PRN 09/12/23 16:52 SODIUM [CHEM] Routine Subjective - Subjective Patient Reports: Other (Alert. Tolerating diet. She states she overall is feeling better but is not at her baseline. She denies shortness of breath chest pain and abdominal pain.) Objective Vital Signs: Vital Signs - 24 hr 09/11/23 09/11/23 09/11/23 17:00 19:46 19:50 Temperature 36.9 C Heart Rate [ 80 Monitoring electrodes] Respiratory 19 33 H Rate Blood Pressure 127/60 [Right Brachial artery] O2 Saturation 92 91 L 96 If not protocol 2 : Oxygen Flow, liters/minute 09/11/23 09/11/23 09/11/23 20:00 21:00 22:00 Temperature 36.9 C Heart Rate [ 85 81 68 Monitoring electrodes] Respiratory 20 26 H 31 H Rate Blood Pressure 150/80 H 136/71 H 120/69 [Right Brachial artery] O2 Saturation 97 95 95 If not protocol 2 2 2 : Oxygen Flow, liters/minute 09/11/23 09/12/23 09/12/23 23:00 00:00 01:00 Temperature 36.6 C Heart Rate [ 78 71 64 Monitoring electrodes] Respiratory 26 H 37 H 28 H Rate Blood Pressure 131/80 H 122/60 116/69 [Right Brachial artery] O2 Saturation 97 95 94 If not protocol 2 2 2 : Oxygen Flow, liters/minute 09/12/23 09/12/23 09/12/23 02:00 03:00 05:00 Temperature 37.1 C Heart Rate [ 74 76 62 Monitoring electrodes] Respiratory 24 20 29 H Rate Blood Pressure 146/77 H 124/64 133/73 H [Right Brachial artery] O2 Saturation 96 93 96 If not protocol 2 2 2 : Oxygen Flow, liters/minute 09/12/23 09/12/23 09/12/23 06:00 07:00 07:51 Temperature 36.9 C Heart Rate [ 78 74 Monitoring electrodes] Respiratory 26 H 27 H Rate Blood Pressure 149/83 H 144/88 H [Right Brachial artery] O2 Saturation 93 92 If not protocol : Oxygen Flow, liters/minute 09/12/23 09/12/23 09/12/23 08:12 12:56 16:47 Temperature 36.4 C L 37.1 C Heart Rate [ 79 63 66 Monitoring electrodes] Respiratory 25 H 23 25 H Rate Blood Pressure 140/75 H 132/69 H 139/77 H [Right Brachial artery] O2 Saturation 95 93 91 L If not protocol : Oxygen Flow, liters/minute Oxygen O2 Source Room air I&O (Last 24 Hrs): Intake and Output Totals x24h 09/10/23 09/11/23 09/12/23 23:59 23:59 23:59 Intake Total 1102.5 6896.503 2348.75 Output Total 550 5175 750 Balance 552.5 3641.082 5872.75 General: Alert, Oriented x3, No acute distress Neck: Supple, No JVD Lymphatic: no adenopathy Neuro: Alert, Non Focal Cardiovascular: Other (Positive S1-S2 no extra heart sounds.) Respiratory: Other (Good air exchange in all lung jain no wheezing no crackles.) Abdomen: Other (Positive bowel sounds soft nontender nondistended) Extremities: No cyanosis, No edema Skin: No rashes - Results Results: Laboratory Results WBC 9.6 x10^3/uL (4.8-10.8) 09/11/23 03:31 RBC 3.37 10^6/uL (4.20-5.40) L 09/11/23 03:31 Hgb 10.6 g/dL (12.0-16.0) L 09/11/23 03:31 Hct 29.2 % (37.0-47.0) L 09/11/23 03:31 MCV 86.6 fL (81.0-99.0) 09/11/23 03:31 MCH 31.5 pg (27.0-31.0) H 09/11/23 03:31 MCHC 36.3 g/dL (32.0-36.0) H 09/11/23 03:31 RDW 12.2 % (12.0-15.0) 09/11/23 03:31 Plt Count 203 10^3/uL (130-450) 09/11/23 03:31 MPV 9.6 fL (7.9-10.8) 09/11/23 03:31 Neut # (Auto) Not Reportable 09/11/23 03:31 Lymph # (Auto) Not Reportable 09/11/23 03:31 [place] # (Auto) Not Reportable 09/11/23 03:31 Eos # (Auto) Not Reportable 09/11/23 03:31 Baso # (Auto) Not Reportable 09/11/23 03:31 Absolute Nucleated RBC Not Reportable 09/11/23 03:31 Total Counted 100 09/11/23 03:31 Band Neuts % (Manual) 24 % (0-10) H 09/11/23 03:31 Abnorm Lymph % (Manual) 0 % 09/11/23 03:31 Nucleated RBC % Not Reportable 09/11/23 03:31 Neutrophils # (Manual) 9.3 10^3/uL (1.5-6.6) H 09/11/23 03:31 Lymphocytes # (Manual) 0.2 10^3/uL (1.5-3.5) L 09/11/23 03:31 Monocytes # (Manual) 0.1 10^3/uL (0.0-1.0) 09/11/23 03:31 Eosinophils # (Manual) 0.0 10^3/uL (0-0.7) 09/11/23 03:31 Basophils # (Manual) 0.0 10^3/uL (0-0.1) 09/11/23 03:31 Differential Comment MANUAL DIFFERENTIAL 09/11/23 03:31 WBC Morphology 2+ TOXIC GRANULATION (NORMAL) 09/10/23 14:36 Platelet Estimate NORMAL (130-450,000) (NORMAL) 09/11/23 03:31 Platelet Morphology NORMAL APPEARANCE (NORMAL) 09/10/23 14:36 RBC Morph Micro Appear NORMAL APPEARANCE (NORMAL) 09/11/23 03:31 VBG pH 7.472 (7.31-7.41) H 09/12/23 03: Ionized Calcium 1.08 mmol/L (1.15-1.33) L 09/12/23 03: Sodium 118 mmol/L (135-145) L* 09/12/23 12:07 Potassium 4.0 mmol/L (3.5-4.5) 09/12/23 12:07 Chloride 89 mmol/L (101-111) L 09/12/23 12:07 Carbon Dioxide 23 mmol/L (21-32) 09/12/23 12:07 Anion Gap 6.0 (6-13) 09/12/23 12:07 BUN 15 mg/dL (6-20) 09/12/23 12:07 Creatinine 0.6 mg/dL (0.6-1.3) 09/12/23 12:07 Estimated GFR (MDRD) 102 (>89) 09/12/23 12:07 Glucose 102 mg/dL (74-104) 09/12/23 12:07 Calcium 8.1 mg/dL (8.5-10.3) L 09/12/23 12:07 Phosphorus 3.5 mg/dL (2.5-5.0) 09/12/23 12:07 Magnesium 1.5 mg/dL (1.7-2.3) L 09/12/23 12:07 Total Bilirubin 0.7 mg/dL (0.2-1.0) 09/10/23 14:36 AST 20 IU/L (10-42) 09/10/23 14:36 ALT 9 IU/L (10-60) L 09/10/23 14:36 Alkaline Phosphatase 48 IU/L (42-121) 09/10/23 14:36 Total Protein 5.8 g/dL (6.4-8.9) L 09/10/23 14:36 Albumin 2.8 g/dL (3.2-5.5) L 09/10/23 14:36 Globulin 3.0 g/dL (2.1-4.2) 09/10/23 14:36 Albumin/Globulin Ratio 0.9 (1.0-2.2) L 09/10/23 14:36 Lipase < 10 U/L (11-82) L 09/10/23 14:36 Urine Color YELLOW 09/10/23 20:30 Urine Clarity HAZY (CLEAR) 09/10/23 20:30 Urine pH 6.0 PH (5.0-7.5) 09/10/23 20:30 Ur Specific [place] 1.015 (1.002-1.030) 09/10/23 20:30 Urine Protein 30 mg/dL (NEGATIVE) H 09/10/23 20:30 Urine Glucose (UA) NEGATIVE mg/dL (NEGATIVE) 09/10/23 20:30 Urine Ketones NEGATIVE mg/dL (NEGATIVE) 09/10/23 20:30 Urine Occult Blood SMALL (NEGATIVE) H 09/10/23 20:30 Urine Nitrite NEGATIVE (NEGATIVE) 09/10/23 20:30 Urine Bilirubin NEGATIVE (NEGATIVE) 09/10/23 20:30 Urine Urobilinogen 0.2 (NORMAL) E.U./dL (NORMAL) 09/10/23 20:30 Ur Leukocyte Esterase NEGATIVE (NEGATIVE) 09/10/23 20:30 Urine RBC 0-5 /HPF (0-5) 09/10/23 20:30 Urine WBC 0-3 /HPF (0-5) 09/10/23 20:30 Ur Squamous Epith Cells MANY Squamous (<= Few) H 09/10/23 20:30 Amorphous Sediment Rare /LPF 09/10/23 20:30 Urine Bacteria Few /HPF (None Seen) 09/10/23 20:30 Ur Microscopic Review INDICATED 09/10/23 20:30 Urine Culture Comments NOT INDICATED 09/10/23 20:30 Nasal Screen MRSA (PCR) NEGATIVE (NEGATIVE) 09/10/23 18:36
[2023-09-12 17:13] LABS: CALCIUM, IONIZED 1.09 mmol/L (1.15-1.33); VBG PH 7.462 (7.31-7.41)
[2023-09-12] MEDS: SODIUM CHLORIDE 1 GM TABLET PO SCH (17:46)
[2023-09-12] MEDS: ZOLPIDEM 5 MG TABLET PO PRN (20:30)
[2023-09-13 04:29] LABS: CALCIUM, IONIZED 1.1 mmol/L (1.15-1.33); VBG PH 7.486 (7.31-7.41)
[2023-09-13] MEDS: CALCIUM CARBONATE CHEW 500 MG TABLET PO SCH (06:40)
[2023-09-13 08:16] LABS: CALCIUM 8.8 mg/dL (8.5-10.3); CREATININE 0.6 mg/dL (0.6-1.3); MAGNESIUM 1.6 mg/dL (1.7-2.3); PHOSPHORUS 4.7 mg/dL (2.5-5.0); POTASSIUM 3.9 mmol/L (3.5-4.5)
[2023-09-13] MEDS: MAGNESIUM OXIDE 400 MG TABLET PO SCH (09:15)
[2023-09-13] MEDS: SODIUM CHLORIDE 0.9% IV ONE (17:29)
[2023-09-13] MEDS: DESMOPRESSIN IV ONE (17:29)
[2023-09-13] MEDS: DEXTROSE 5% 1,000 ML IV SCH (17:30)
--- NOTE | 2023-09-13 23:17 | PROVIDER PROGRESS NOTE ---
Assessment/Plan - Problem List (1) Hyponatremia Assessment/Plan: Patient presented with severe hyponatremia with a serum sodium of 113. This most likely is a chronic process. Severe hyponatremia can be life-threatening and warrants admission to an intensive care unit. Hyponatremia of this degree can have significant consequences to include seizure and possibly osmotic demyelination syndrome if the serum sodium is corrected too rapidly. Overnight the patient's serum sodium increased to 125 at an appropriate rate. . Continue total fluid restriction of 1500 mL. Once patient's serum sodium is 128 the risk of osmotic demyelination is very low. (2) Influenza Conclusion/Plan: Patient recently diagnosed with influenza. Influenza may be the cause of her abnormalities on her chest x-ray. Treatment is supportive at this time. Continue ceftriaxone and doxycycline for empiric antibiotic coverage. - Current Meds Current Meds: Current Medications Generic Name Dose Route Start Last Admin Trade Name Freq PRN Reason Stop Dose Admin Acetaminophen 650 mg 09/11/23 20:14 09/12/23 20:29 Acetaminophen 325 Mg Tablet PO 650 mg Q4HR PRN Administration Pain or Fever > 38C (100.4F) Enoxaparin Sodium 40 mg 09/10/23 21:00 09/13/23 20:20 Enoxaparin 40 Mg/0.4 Ml Syringe SUBQ 40 mg QPM BRIDGER Administration Ceftriaxone Sodium 2 gm/ 100 mls @ 200 mls/hr 09/11/23 21:00 09/13/23 10:00 Sodium Chloride IV Infused DAILY BRIDGER Infusion Doxycycline Hyclate 100 mg/ 100 mls @ 100 mls/hr 09/11/23 09:00 09/13/23 23:14 Sodium Chloride IV Infused BID BRIDGER Infusion Ondansetron HCl 4 mg 09/10/23 19:00 09/10/23 19:05 Ondansetron 4 Mg/2 Ml Vial IVP 4 mg Q4HR PRN Administration Nausea / Vomiting Polyethylene Glycol 17 gm 09/12/23 09:00 09/13/23 09:15 Polyethylene Glycol 3350 17 Gm Packet PO Not Given DAILY BRIDGER Sodium Chloride 10 ml 09/11/23 01:00 09/13/23 20:25 Sodium Chloride Flush 0.9% 10 Ml Syringe IVP 10 ml 0100,0900,1700 BRIDGER Administration Sodium Chloride 10 ml 09/10/23 17:50 09/11/23 03:25 Sodium Chloride Flush 0.9% 10 Ml Syringe IVP 10 ml PRN PRN Administration NEEDED PER PROVIDER ORDERS Sodium Chloride 1 gm 09/12/23 17:37 09/13/23 09:15 Sodium Chloride 1 Gm Tablet PO 1 gm DAILY BRIDGER Administration Zolpidem Tartrate 5 mg 09/12/23 14:20 09/13/23 20:27 Zolpidem 5 Mg Tablet PO 5 mg QPM PRN Administration Insomnia - Lab Result Fish Bone Diagrams: 09/11/23 03:31 09/13/23 20:27 - Additional Planning My Orders: My Active Orders 09/13/23 18:50 Activity Orders (ICU) [RC] BID 09/14/23 00:30 SODIUM [CHEM] Routine Subjective - Subjective Patient Reports: Other (Alert. Denies chest pain, shortness of breath, nausea and vomiting, abdominal pain.) Objective Vital Signs: Vital Signs - 24 hr 09/13/23 09/13/23 09/13/23 00:12 00:45 05:00 Temperature 36.4 C L Heart Rate [ 72 64 Monitoring electrodes] Respiratory 35 H 16 Rate Blood Pressure 169/79 H 141/70 H 128/85 H [Right Brachial artery] O2 Saturation 93 94 If not protocol 2 2 : Oxygen Flow, liters/minute 09/13/23 09/13/23 09/13/23 07:57 13:00 16:15 Temperature 37.1 C 37 C 37.4 C Heart Rate [ 66 74 72 Monitoring electrodes] Respiratory 18 18 16 Rate Blood Pressure 141/76 H 127/69 130/71 [Right Brachial artery] O2 Saturation 92 93 94 If not protocol : Oxygen Flow, liters/minute 09/13/23 09/13/23 19:52 19:54 Temperature 37.3 C Heart Rate [ 72 Monitoring electrodes] Respiratory 16 Rate Blood Pressure 132/66 H [Right Brachial artery] O2 Saturation 87 L 92 If not protocol 2 : Oxygen Flow, liters/minute Oxygen O2 Source Nasal cannula I&O (Last 24 Hrs): Intake and Output Totals x24h 09/11/23 09/12/23 09/13/23 23:59 23:59 23:59 Intake Total 6896.503 3098.75 2109.333 Output Total 3923 1275 1045 Balance 3339.534 0870.75 -8175.517 General: Alert, Oriented x3, No acute distress HEENT: Atraumatic Neck: No JVD, No thyromegaly Neuro: Alert, Non Focal Cardiovascular: Other (Positive S1-S2 no extra heart sounds.) Respiratory: Other (Good air exchange in all lung jain no wheezing no crackles.) Abdomen: Other (Positive bowel sounds soft nontender nondistended) Extremities: No cyanosis, No edema Skin: No rashes - Results Results: Laboratory Results WBC 9.6 x10^3/uL (4.8-10.8) 09/11/23 03:31 RBC 3.37 10^6/uL (4.20-5.40) L 09/11/23 03:31 Hgb 10.6 g/dL (12.0-16.0) L 09/11/23 03:31 Hct 29.2 % (37.0-47.0) L 09/11/23 03:31 MCV 86.6 fL (81.0-99.0) 09/11/23 03:31 MCH 31.5 pg (27.0-31.0) H 09/11/23 03:31 MCHC 36.3 g/dL (32.0-36.0) H 09/11/23 03:31 RDW 12.2 % (12.0-15.0) 09/11/23 03:31 Plt Count 203 10^3/uL (130-450) 09/11/23 03:31 MPV 9.6 fL (7.9-10.8) 09/11/23 03:31 Neut # (Auto) Not Reportable 09/11/23 03:31 Lymph # (Auto) Not Reportable 09/11/23 03:31 [place] # (Auto) Not Reportable 09/11/23 03:31 Eos # (Auto) Not Reportable 09/11/23 03:31 Baso # (Auto) Not Reportable 09/11/23 03:31 Absolute Nucleated RBC Not Reportable 09/11/23 03:31 Total Counted 100 09/11/23 03:31 Band Neuts % (Manual) 24 % (0-10) H 09/11/23 03:31 Abnorm Lymph % (Manual) 0 % 09/11/23 03:31 Nucleated RBC % Not Reportable 09/11/23 03:31 Neutrophils # (Manual) 9.3 10^3/uL (1.5-6.6) H 09/11/23 03:31 Lymphocytes # (Manual) 0.2 10^3/uL (1.5-3.5) L 09/11/23 03:31 Monocytes # (Manual) 0.1 10^3/uL (0.0-1.0) 09/11/23 03:31 Eosinophils # (Manual) 0.0 10^3/uL (0-0.7) 09/11/23 03:31 Basophils # (Manual) 0.0 10^3/uL (0-0.1) 09/11/23 03:31 Differential Comment MANUAL DIFFERENTIAL 09/11/23 03:31 WBC Morphology 2+ TOXIC GRANULATION (NORMAL) 09/10/23 14:36 Platelet Estimate NORMAL (130-450,000) (NORMAL) 09/11/23 03:31 Platelet Morphology NORMAL APPEARANCE (NORMAL) 09/10/23 14:36 RBC Morph Micro Appear NORMAL APPEARANCE (NORMAL) 09/11/23 03:31 VBG pH 7.486 (7.31-7.41) H 09/13/23 04:20 Ionized Calcium 1.10 mmol/L (1.15-1.33) L 09/13/23 04:20 Sodium 125 mmol/L (135-145) L 09/13/23 20:27 Potassium 3.9 mmol/L (3.5-4.5) 09/13/23 07:53 Chloride 93 mmol/L (101-111) L 09/13/23 07:53 Carbon Dioxide 25 mmol/L (21-32) 09/13/23 07:53 Anion Gap 7.0 (6-13) 09/13/23 07:53 BUN 12 mg/dL (6-20) 09/13/23 07:53 Creatinine 0.6 mg/dL (0.6-1.3) 09/13/23 07:53 Estimated GFR (MDRD) 102 (>89) 09/13/23 07:53 Glucose 109 mg/dL (74-104) H 09/13/23 07:53 Calcium 8.8 mg/dL (8.5-10.3) 09/13/23 07:53 Phosphorus 4.7 mg/dL (2.5-5.0) 09/13/23 07:53 Magnesium 1.6 mg/dL (1.7-2.3) L 09/13/23 07:53 Total Bilirubin 0.7 mg/dL (0.2-1.0) 09/10/23 14:36 AST 20 IU/L (10-42) 09/10/23 14:36 ALT 9 IU/L (10-60) L 09/10/23 14:36 Alkaline Phosphatase 48 IU/L (42-121) 09/10/23 14:36 Total Protein 5.8 g/dL (6.4-8.9) L 09/10/23 14:36 Albumin 2.8 g/dL (3.2-5.5) L 09/10/23 14:36 Globulin 3.0 g/dL (2.1-4.2) 09/10/23 14:36 Albumin/Globulin Ratio 0.9 (1.0-2.2) L 09/10/23 14:36 Lipase < 10 U/L (11-82) L 09/10/23 14:36 Urine Color YELLOW 09/10/23 20:30 Urine Clarity HAZY (CLEAR) 09/10/23 20:30 Urine pH 6.0 PH (5.0-7.5) 09/10/23 20:30 Ur Specific [place] 1.015 (1.002-1.030) 09/10/23 20:30 Urine Protein 30 mg/dL (NEGATIVE) H 09/10/23 20:30 Urine Glucose (UA) NEGATIVE mg/dL (NEGATIVE) 09/10/23 20:30 Urine Ketones NEGATIVE mg/dL (NEGATIVE) 09/10/23 20:30 Urine Occult Blood SMALL (NEGATIVE) H 09/10/23 20:30 Urine Nitrite NEGATIVE (NEGATIVE) 09/10/23 20:30 Urine Bilirubin NEGATIVE (NEGATIVE) 09/10/23 20:30 Urine Urobilinogen 0.2 (NORMAL) E.U./dL (NORMAL) 09/10/23 20:30 Ur Leukocyte Esterase NEGATIVE (NEGATIVE) 09/10/23 20:30 Urine RBC 0-5 /HPF (0-5) 09/10/23 20:30 Urine WBC 0-3 /HPF (0-5) 09/10/23 20:30 Ur Squamous Epith Cells MANY Squamous (<= Few) H 09/10/23 20:30 Amorphous Sediment Rare /LPF 09/10/23 20:30 Urine Bacteria Few /HPF (None Seen) 09/10/23 20:30 Ur Microscopic Review INDICATED 09/10/23 20:30 Urine Culture Comments NOT INDICATED 09/10/23 20:30 Nasal Screen MRSA (PCR) NEGATIVE (NEGATIVE) 09/10/23 18:36
[2023-09-14 08:40] LABS: CALCIUM 8.4 mg/dL (8.5-10.3); CREATININE 0.5 mg/dL (0.6-1.3); POTASSIUM 3.7 mmol/L (3.5-4.5)
--- NOTE | 2023-09-14 08:49 | PROVIDER PROGRESS NOTE ---
Assessment/Plan - Problem List (1) Hyponatremia Assessment/Plan: Patient presented with severe hyponatremia with a serum sodium of 113. This most likely is a chronic process. Severe hyponatremia can be life-threatening and warrants admission to an intensive care unit. Hyponatremia of this degree can have significant consequences to include seizure and possibly osmotic demyelination syndrome if the serum sodium is corrected too rapidly. Overnight the patient's serum sodium increased to 126 at an appropriate rate. . Continue total fluid restriction of 1500 mL. Once patient's serum sodium is 128 the risk of osmotic demyelination is very low. Salt tablets as needed to increase serum sodium. (2) Influenza Conclusion/Plan: Patient recently diagnosed with influenza. Influenza may be the cause of her abnormalities on her chest x-ray. Treatment is supportive at this time. Continue ceftriaxone and doxycycline for empiric antibiotic coverage. - Current Meds Current Meds: Current Medications Generic Name Dose Route Start Last Admin Trade Name Freq PRN Reason Stop Dose Admin Acetaminophen 650 mg 09/11/23 20:14 09/14/23 07:31 Acetaminophen 325 Mg Tablet PO 650 mg Q4HR PRN Administration Pain or Fever > 38C (100.4F) Enoxaparin Sodium 40 mg 09/10/23 21:00 09/13/23 20:20 Enoxaparin 40 Mg/0.4 Ml Syringe SUBQ 40 mg QPM BRIDGER Administration Ceftriaxone Sodium 2 gm/ 100 mls @ 200 mls/hr 09/11/23 21:00 09/13/23 10:00 Sodium Chloride IV Infused DAILY BRIDGER Infusion Doxycycline Hyclate 100 mg/ 100 mls @ 100 mls/hr 09/11/23 09:00 09/13/23 23:14 Sodium Chloride IV Infused BID BRIDGER Infusion Ondansetron HCl 4 mg 09/10/23 19:00 09/10/23 19:05 Ondansetron 4 Mg/2 Ml Vial IVP 4 mg Q4HR PRN Administration Nausea / Vomiting Polyethylene Glycol 17 gm 09/12/23 09:00 09/13/23 09:15 Polyethylene Glycol 3350 17 Gm Packet PO Not Given DAILY BRIDGER Sodium Chloride 10 ml 09/11/23 01:00 09/13/23 20:25 Sodium Chloride Flush 0.9% 10 Ml Syringe IVP 10 ml 0100,0900,1700 BRIDGER Administration Sodium Chloride 10 ml 09/10/23 17:50 09/11/23 03:25 Sodium Chloride Flush 0.9% 10 Ml Syringe IVP 10 ml PRN PRN Administration NEEDED PER PROVIDER ORDERS Sodium Chloride 1 gm 09/12/23 17:37 09/13/23 09:15 Sodium Chloride 1 Gm Tablet PO 1 gm DAILY BRIDGER Administration Zolpidem Tartrate 5 mg 09/12/23 14:20 09/13/23 20:27 Zolpidem 5 Mg Tablet PO 5 mg QPM PRN Administration Insomnia - Lab Result Fish Bone Diagrams: 09/11/23 03:31 09/14/23 08:23 - Additional Planning My Orders: My Active Orders 09/13/23 18:50 Activity Orders (ICU) [RC] BID Subjective - Subjective Patient Reports: Other (Alert. Denies chest pain, shortness of breath and abdominal pain. No other complaints at this time.) Objective Vital Signs: Vital Signs - 24 hr 09/13/23 09/13/23 09/13/23 13:00 16:15 19:52 Temperature 37 C 37.4 C 37.3 C Heart Rate [ 74 72 72 Monitoring electrodes] Respiratory 18 16 16 Rate Blood Pressure 127/69 130/71 132/66 H [Right Brachial artery] O2 Saturation 93 94 87 L If not protocol : Oxygen Flow, liters/minute 09/13/23 09/14/23 09/14/23 19:54 00:45 05:00 Temperature 37.3 C 36.2 C L Heart Rate [ 77 76 Monitoring electrodes] Respiratory 20 18 Rate Blood Pressure 136/70 H 140/75 H [Right Brachial artery] O2 Saturation 92 95 92 If not protocol 2 2 2 : Oxygen Flow, liters/minute 09/14/23 07:58 Temperature 36.9 C Heart Rate [ 66 Monitoring electrodes] Respiratory 16 Rate Blood Pressure 135/73 H [Right Brachial artery] O2 Saturation 93 If not protocol : Oxygen Flow, liters/minute Oxygen O2 Source Room air I&O (Last 24 Hrs): Intake and Output Totals x24h 09/12/23 09/13/23 09/14/23 23:59 23:59 23:59 Intake Total 3098.75 2109.333 Output Total 1275 4385 200 Balance 1823.75 -2365.667 -200 General: Alert, Oriented x3, No acute distress HEENT: Atraumatic Neck: Supple, No JVD, No thyromegaly Neuro: Alert, Non Focal Cardiovascular: Other (Positive S1-S2 no extra heart sounds) Respiratory: Other (Good air exchange in all lung jain no wheezing no crackles) Abdomen: Other (Soft nontender positive bowel sounds) Extremities: No cyanosis, No edema Skin: No rashes - Results Results: Laboratory Results WBC 9.6 x10^3/uL (4.8-10.8) 09/11/23 03:31 RBC 3.37 10^6/uL (4.20-5.40) L 09/11/23 03:31 Hgb 10.6 g/dL (12.0-16.0) L 09/11/23 03:31 Hct 29.2 % (37.0-47.0) L 09/11/23 03:31 MCV 86.6 fL (81.0-99.0) 09/11/23 03:31 MCH 31.5 pg (27.0-31.0) H 09/11/23 03:31 MCHC 36.3 g/dL (32.0-36.0) H 09/11/23 03:31 RDW 12.2 % (12.0-15.0) 09/11/23 03:31 Plt Count 203 10^3/uL (130-450) 09/11/23 03:31 MPV 9.6 fL (7.9-10.8) 09/11/23 03:31 Neut # (Auto) Not Reportable 09/11/23 03:31 Lymph # (Auto) Not Reportable 09/11/23 03:31 [place] # (Auto) Not Reportable 09/11/23 03:31 Eos # (Auto) Not Reportable 09/11/23 03:31 Baso # (Auto) Not Reportable 09/11/23 03:31 Absolute Nucleated RBC Not Reportable 09/11/23 03:31 Total Counted 100 09/11/23 03:31 Band Neuts % (Manual) 24 % (0-10) H 09/11/23 03:31 Abnorm Lymph % (Manual) 0 % 09/11/23 03:31 Nucleated RBC % Not Reportable 09/11/23 03:31 Neutrophils # (Manual) 9.3 10^3/uL (1.5-6.6) H 09/11/23 03:31 Lymphocytes # (Manual) 0.2 10^3/uL (1.5-3.5) L 09/11/23 03:31 Monocytes # (Manual) 0.1 10^3/uL (0.0-1.0) 09/11/23 03:31 Eosinophils # (Manual) 0.0 10^3/uL (0-0.7) 09/11/23 03:31 Basophils # (Manual) 0.0 10^3/uL (0-0.1) 09/11/23 03:31 Differential Comment MANUAL DIFFERENTIAL 09/11/23 03:31 WBC Morphology 2+ TOXIC GRANULATION (NORMAL) 09/10/23 14:36 Platelet Estimate NORMAL (130-450,000) (NORMAL) 09/11/23 03:31 Platelet Morphology NORMAL APPEARANCE (NORMAL) 09/10/23 14:36 RBC Morph Micro Appear NORMAL APPEARANCE (NORMAL) 09/11/23 03:31 VBG pH 7.486 (7.31-7.41) H 09/13/23 04:20 Ionized Calcium 1.10 mmol/L (1.15-1.33) L 09/13/23 04:20 Sodium 126 mmol/L (135-145) L 09/14/23 08:23 Potassium 3.7 mmol/L (3.5-4.5) 09/14/23 08:23 Chloride 93 mmol/L (101-111) L 09/14/23 08:23 Carbon Dioxide 27 mmol/L (21-32) 09/14/23 08:23 Anion Gap 6.0 (6-13) 09/14/23 08:23 BUN 16 mg/dL (6-20) 09/14/23 08:23 Creatinine 0.5 mg/dL (0.6-1.3) L 09/14/23 08:23 Estimated GFR (MDRD) 126 (>89) 09/14/23 08:23 Glucose 105 mg/dL (74-104) H 09/14/23 08:23 Calcium 8.4 mg/dL (8.5-10.3) L 09/14/23 08:23 Phosphorus 4.7 mg/dL (2.5-5.0) 09/13/23 07:53 Magnesium 1.6 mg/dL (1.7-2.3) L 09/13/23 07:53 Total Bilirubin 0.7 mg/dL (0.2-1.0) 09/10/23 14:36 AST 20 IU/L (10-42) 09/10/23 14:36 ALT 9 IU/L (10-60) L 09/10/23 14:36 Alkaline Phosphatase 48 IU/L (42-121) 09/10/23 14:36 Total Protein 5.8 g/dL (6.4-8.9) L 09/10/23 14:36 Albumin 2.8 g/dL (3.2-5.5) L 09/10/23 14:36 Globulin 3.0 g/dL (2.1-4.2) 09/10/23 14:36 Albumin/Globulin Ratio 0.9 (1.0-2.2) L 09/10/23 14:36 Lipase < 10 U/L (11-82) L 09/10/23 14:36 Urine Color YELLOW 09/10/23 20:30 Urine Clarity HAZY (CLEAR) 09/10/23 20:30 Urine pH 6.0 PH (5.0-7.5) 09/10/23 20:30 Ur Specific [place] 1.015 (1.002-1.030) 09/10/23 20:30 Urine Protein 30 mg/dL (NEGATIVE) H 09/10/23 20:30 Urine Glucose (UA) NEGATIVE mg/dL (NEGATIVE) 09/10/23 20:30 Urine Ketones NEGATIVE mg/dL (NEGATIVE) 09/10/23 20:30 Urine Occult Blood SMALL (NEGATIVE) H 09/10/23 20:30 Urine Nitrite NEGATIVE (NEGATIVE) 09/10/23 20:30 Urine Bilirubin NEGATIVE (NEGATIVE) 09/10/23 20:30 Urine Urobilinogen 0.2 (NORMAL) E.U./dL (NORMAL) 09/10/23 20:30 Ur Leukocyte Esterase NEGATIVE (NEGATIVE) 09/10/23 20:30 Urine RBC 0-5 /HPF (0-5) 09/10/23 20:30 Urine WBC 0-3 /HPF (0-5) 09/10/23 20:30 Ur Squamous Epith Cells MANY Squamous (<= Few) H 09/10/23 20:30 Amorphous Sediment Rare /LPF 09/10/23 20:30 Urine Bacteria Few /HPF (None Seen) 09/10/23 20:30 Ur Microscopic Review INDICATED 09/10/23 20:30 Urine Culture Comments NOT INDICATED 09/10/23 20:30 Nasal Screen MRSA (PCR) NEGATIVE (NEGATIVE) 09/10/23 18:36
[2023-09-14] MEDS: SODIUM CHLORIDE 1 GM TABLET PO SCH ×2 (10:22→16:53)
[2023-09-14] MEDS: POTASSIUM CHLORIDE 20 MEQ/15 ML UDC PO SCH (16:48)
[2023-09-14] MEDS: FUROSEMIDE 20 MG TABLET PO SCH (17:35)
[2023-09-15 05:55] LABS: BASOPHILS % (AUTO) 0.4 %; EOSINOPHILS # (AUTO) 0.1 10^3/uL (0.0-0.7); EOSINOPHILS % (AUTO) 0.8 %; HCT - HEMATOCRIT 28.6 % (37.0-47.0); HGB - HEMOGLOBIN 9.6 g/dL (12.0-16.0); LYMPHOCYTES # (AUTO) 0.7 10^3/uL (1.5-3.5); LYMPHOCYTES % (AUTO) 10.4 %; MEAN CORPUSCULAR HEMOGLOBIN 30.4 pg (27.0-31.0); MEAN CORPUSCULAR HGB CONC 33.6 g/dL (32.0-36.0); MEAN CORPUSCULAR VOLUME 90.5 fL (81.0-99.0); MEAN PLATELET VOLUME 9.1 fL (7.9-10.8); MONOCYTES # (AUTO) 0.6 10^3/uL (0.0-1.0); MONOCYTES % (AUTO) 7.7 %; NEUTROPHILS # (AUTO) 5.1 10^3/uL (1.5-6.6); NEUTROPHILS % (AUTO) 71.2 %; PLT - PLATELET COUNT 289 10^3/uL (130-450); RED BLOOD COUNT 3.16 10^6/uL (4.20-5.40); WHITE BLOOD COUNT 7.1 x10^3/uL (4.8-10.8)
[2023-09-15 06:14] LABS: CALCIUM 8.3 mg/dL (8.5-10.3); CREATININE 0.6 mg/dL (0.6-1.3); MAGNESIUM 1.9 mg/dL (1.7-2.3); PHOSPHORUS 4.5 mg/dL (2.5-5.0); POTASSIUM 4.2 mmol/L (3.5-4.5)
[2023-09-15 06:46] LABS: DIFFERENTIAL COMMENT MANUAL=AUTO DIFF; PLATELET ESTIMATE, MANUAL NORMAL (130-450,000) (NORMAL); PLATELET MORPHOLOGY RARE GIANT PLATELETS (NORMAL); RBC MORPHOLOGY (MULTIPLE) NORMAL APPEARANCE (NORMAL)
[2023-09-15] MEDS: SODIUM CHLORIDE 1 GM TABLET PO SCH ×2 (09:11→20:08)
[2023-09-15] MEDS: LOPERAMIDE 2 MG CAPSULE PO PRN (09:53)
--- NOTE | 2023-09-15 22:51 | PROVIDER PROGRESS NOTE ---
Assessment/Plan - Problem List (1) Hyponatremia Assessment/Plan: Patient presented with severe hyponatremia with a serum sodium of 113. This most likely is a chronic process. Overnight the patient's serum sodium increased to 130 at an appropriate rate. . Continue total fluid restriction of 1500 mL. Once patient's serum sodium is 128 the risk of osmotic demyelination is very low. Salt tablets as needed to increase serum sodium. (2) Influenza Conclusion/Plan: Patient recently diagnosed with influenza. Influenza may be the cause of her abnormalities on her chest x-ray. Treatment is supportive at this time. Continue ceftriaxone and doxycycline for empiric antibiotic coverage. (3) Hypoxia Patient continues to require oxygen for respiratory support. Wean oxygen as tolerated. Encourage use of incentive spirometer on an hourly basis during daylight hours. - Current Meds Current Meds: Current Medications Generic Name Dose Route Start Last Admin Trade Name Freq PRN Reason Stop Dose Admin Acetaminophen 650 mg 09/11/23 20:14 09/14/23 18:15 Acetaminophen 325 Mg Tablet PO 650 mg Q4HR PRN Administration Pain or Fever > 38C (100.4F) Enoxaparin Sodium 40 mg 09/10/23 21:00 09/15/23 20:08 Enoxaparin 40 Mg/0.4 Ml Syringe SUBQ 40 mg QPM BRIDGER Administration Ceftriaxone Sodium 2 gm/ 100 mls @ 200 mls/hr 09/11/23 21:00 09/15/23 09:10 Sodium Chloride IV Infused DAILY BRIDGER Infusion Doxycycline Hyclate 100 mg/ 100 mls @ 100 mls/hr 09/11/23 09:00 09/15/23 21:30 Sodium Chloride IV Infused BID BRIDGER Infusion Loperamide HCl 2 mg 09/15/23 08:56 09/15/23 09:53 Loperamide 2 Mg Capsule PO 2 mg QID PRN Administration Diarrhea Ondansetron HCl 4 mg 09/10/23 19:00 09/10/23 19:05 Ondansetron 4 Mg/2 Ml Vial IVP 4 mg Q4HR PRN Administration Nausea / Vomiting Polyethylene Glycol 17 gm 09/12/23 09:00 09/15/23 08:33 Polyethylene Glycol 3350 17 Gm Packet PO Not Given DAILY BRIDGER Sodium Chloride 10 ml 09/11/23 01:00 09/15/23 16:05 Sodium Chloride Flush 0.9% 10 Ml Syringe IVP 10 ml 0100,0900,1700 BRIDGER Administration Sodium Chloride 10 ml 09/10/23 17:50 09/15/23 10:29 Sodium Chloride Flush 0.9% 10 Ml Syringe IVP 10 ml PRN PRN Administration NEEDED PER PROVIDER ORDERS Sodium Chloride 1 gm 09/15/23 21:00 09/15/23 20:08 Sodium Chloride 1 Gm Tablet PO 1 gm BID BRIDGER Administration Zolpidem Tartrate 5 mg 09/12/23 14:20 09/15/23 20:08 Zolpidem 5 Mg Tablet PO 5 mg QPM PRN Administration Insomnia - Lab Result Fish Bone Diagrams: 09/15/23 04:46 09/15/23 04:46 - Additional Planning My Orders: My Active Orders 09/15/23 08:56 Loperamide [Imodium] 2 mg PO QID PRN 09/15/23 21:00 Sodium Chloride [Salt Tab] 1 gm PO BID 09/16/23 09:00 Furosemide [Lasix] 20 mg PO DAILY Subjective - Subjective Patient Reports: Other (Alert. Continues to require oxygen. Denies chest pain, shortness of breath and abdominal pain.) Objective Vital Signs: Vital Signs - 24 hr 09/14/23 09/15/23 09/15/23 23:08 03:34 06:59 Temperature 37.1 C 36.9 C 36.6 C Heart Rate [ 69 74 71 Monitoring electrodes] Respiratory 12 12 16 Rate Blood Pressure 140/74 H 131/57 H 133/66 H [Right Brachial artery] O2 Saturation 92 95 89 L If not protocol 2 2 : Oxygen Flow, liters/minute 09/15/23 09/15/23 09/15/23 07:00 07:29 12:12 Temperature 36.7 C 36.7 C Heart Rate [ 69 69 Monitoring electrodes] Respiratory 20 18 Rate Blood Pressure 126/64 132/67 H [Right Brachial artery] O2 Saturation 92 94 93 If not protocol 2 1 : Oxygen Flow, liters/minute 09/15/23 09/15/23 16:02 21:00 Temperature 37 C 36.9 C Heart Rate [ 79 72 Monitoring electrodes] Respiratory 22 18 Rate Blood Pressure 116/58 L 109/58 L [Right Brachial artery] O2 Saturation 93 91 L If not protocol : Oxygen Flow, liters/minute Oxygen O2 Source Room air I&O (Last 24 Hrs): Intake and Output Totals x24h 09/13/23 09/14/23 09/15/23 23:59 23:59 23:59 Intake Total 2109.333 1170 1320 Output Total 4475 1325 1600 Balance -2365.667 -155 -280 General: Alert, Oriented x3, No acute distress HEENT: Atraumatic Neck: No JVD, No thyromegaly Lymphatic: no adenopathy Neuro: Alert, Non Focal Cardiovascular: Other (Positive S1-S2 no extra heart sounds.) Respiratory: Other (Good air exchange in all lung jain no wheezing no crackles.) Abdomen: Normal bowel sounds, No tenderness Extremities: No cyanosis, No edema Skin: No rashes - Results Results: Laboratory Results WBC 7.1 x10^3/uL (4.8-10.8) 09/15/23 04:46 RBC 3.16 10^6/uL (4.20-5.40) L 09/15/23 04:46 Hgb 9.6 g/dL (12.0-16.0) L 09/15/23 04:46 Hct 28.6 % (37.0-47.0) L 09/15/23 04:46 MCV 90.5 fL (81.0-99.0) 09/15/23 04:46 MCH 30.4 pg (27.0-31.0) 09/15/23 04:46 MCHC 33.6 g/dL (32.0-36.0) 09/15/23 04:46 RDW 13.0 % (12.0-15.0) 09/15/23 04:46 Plt Count 289 10^3/uL (130-450) 09/15/23 04:46 MPV 9.1 fL (7.9-10.8) 09/15/23 04:46 Neut # (Auto) 5.1 10^3/uL (1.5-6.6) 09/15/23 04:46 Lymph # (Auto) 0.7 10^3/uL (1.5-3.5) L 09/15/23 04:46 [place] # (Auto) 0.6 10^3/uL (0.0-1.0) 09/15/23 04:46 Eos # (Auto) 0.1 10^3/uL (0.0-0.7) 09/15/23 04:46 Baso # (Auto) 0.0 10^3/uL (0.0-0.1) 09/15/23 04:46 Absolute Nucleated RBC 0.00 x10^3/uL 09/15/23 04:46 Total Counted 100 09/11/23 03:31 Band Neuts % (Manual) Not Reportable 09/15/23 04:46 Abnorm Lymph % (Manual) Not Reportable 09/15/23 04:46 Nucleated RBC % 0.0 /100WBC 09/15/23 04:46 Neutrophils # (Manual) Not Reportable 09/15/23 04:46 Lymphocytes # (Manual) Not Reportable 09/15/23 04:46 Monocytes # (Manual) Not Reportable 09/15/23 04:46 Eosinophils # (Manual) Not Reportable 09/15/23 04:46 Basophils # (Manual) Not Reportable 09/15/23 04:46 Differential Comment MANUAL=AUTO DIFF 09/15/23 04:46 WBC Morphology 2+ TOXIC GRANULATION (NORMAL) 09/10/23 14:36 Platelet Estimate NORMAL (130-450,000) (NORMAL) 09/15/23 04:46 Platelet Morphology RARE GIANT PLATELETS (NORMAL) 09/15/23 04:46 RBC Morph Micro Appear NORMAL APPEARANCE (NORMAL) 09/15/23 04:46 VBG pH 7.486 (7.31-7.41) H 09/13/23 04:20 Ionized Calcium 1.10 mmol/L (1.15-1.33) L 09/13/23 04:20 Sodium 130 mmol/L (135-145) L 09/15/23 04:46 Potassium 4.2 mmol/L (3.5-4.5) 09/15/23 04:46 Chloride 97 mmol/L (101-111) L 09/15/23 04:46 Carbon Dioxide 27 mmol/L (21-32) 09/15/23 04:46 Anion Gap 6.0 (6-13) 09/15/23 04:46 BUN 12 mg/dL (6-20) 09/15/23 04:46 Creatinine 0.6 mg/dL (0.6-1.3) 09/15/23 04:46 Estimated GFR (MDRD) 102 (>89) 09/15/23 04:46 Glucose 109 mg/dL (74-104) H 09/15/23 04:46 Calcium 8.3 mg/dL (8.5-10.3) L 09/15/23 04:46 Phosphorus 4.5 mg/dL (2.5-5.0) 09/15/23 04:46 Magnesium 1.9 mg/dL (1.7-2.3) 09/15/23 04:46 Total Bilirubin 0.7 mg/dL (0.2-1.0) 09/10/23 14:36 AST 20 IU/L (10-42) 09/10/23 14:36 ALT 9 IU/L (10-60) L 09/10/23 14:36 Alkaline Phosphatase 48 IU/L (42-121) 09/10/23 14:36 Total Protein 5.8 g/dL (6.4-8.9) L 09/10/23 14:36 Albumin 2.8 g/dL (3.2-5.5) L 09/10/23 14:36 Globulin 3.0 g/dL (2.1-4.2) 09/10/23 14:36 Albumin/Globulin Ratio 0.9 (1.0-2.2) L 09/10/23 14:36 Lipase < 10 U/L (11-82) L 09/10/23 14:36 Urine Color YELLOW 09/10/23 20:30 Urine Clarity HAZY (CLEAR) 09/10/23 20:30 Urine pH 6.0 PH (5.0-7.5) 09/10/23 20:30 Ur Specific [place] 1.015 (1.002-1.030) 09/10/23 20:30 Urine Protein 30 mg/dL (NEGATIVE) H 09/10/23 20:30 Urine Glucose (UA) NEGATIVE mg/dL (NEGATIVE) 09/10/23 20:30 Urine Ketones NEGATIVE mg/dL (NEGATIVE) 09/10/23 20:30 Urine Occult Blood SMALL (NEGATIVE) H 09/10/23 20:30 Urine Nitrite NEGATIVE (NEGATIVE) 09/10/23 20:30 Urine Bilirubin NEGATIVE (NEGATIVE) 09/10/23 20:30 Urine Urobilinogen 0.2 (NORMAL) E.U./dL (NORMAL) 09/10/23 20:30 Ur Leukocyte Esterase NEGATIVE (NEGATIVE) 09/10/23 20:30 Urine RBC 0-5 /HPF (0-5) 09/10/23 20:30 Urine WBC 0-3 /HPF (0-5) 09/10/23 20:30 Ur Squamous Epith Cells MANY Squamous (<= Few) H 09/10/23 20:30 Amorphous Sediment Rare /LPF 09/10/23 20:30 Urine Bacteria Few /HPF (None Seen) 09/10/23 20:30 Ur Microscopic Review INDICATED 09/10/23 20:30 Urine Culture Comments NOT INDICATED 09/10/23 20:30 Nasal Screen MRSA (PCR) NEGATIVE (NEGATIVE) 09/10/23 18:36
[2023-09-16 05:53] LABS: CALCIUM 8.5 mg/dL (8.5-10.3); CREATININE 0.6 mg/dL (0.6-1.3); MAGNESIUM 1.9 mg/dL (1.7-2.3)
[2023-09-16] MEDS: FUROSEMIDE 20 MG TABLET PO SCH (09:01)
--- NOTE | 2023-09-16 14:28 | XRAY Report ---
PROCEDURE: Chest 2V INDICATIONS: Interval follow-up in pt with influenza and hypox TECHNIQUE: 2 views of the chest were acquired. COMPARISON: 09/10/2023. FINDINGS: Surgical changes and devices: None. Lungs and pleura: No pleural effusions or pneumothorax. There is interval decrease in size of patien t's known airspace opacities in bilateral upper to midlung jain. Mediastinum: Mediastinal contours appear normal. Heart size is normal. Bones and chest wall: No suspicious bony lesions. Overlying soft tissues appear unremarkable. IMPRESSION: Finding is consistent with resolving bilateral pulmonary infiltrates with improved bilate ral lung aeration compared to previous study. No pleural effusion or thorax. Reviewed by: Bunny Campos MD on 09/16/2023 2:27 PM PDT Approved by: Bunny Campos MD on 09/16/2023 2:27 PM PDT Station ID: [id number]
--- NOTE | 2023-09-16 15:41 | DISCHARGE SUMMARY ---
Discharge Summary Admit Date: 08/18/23 Discharge Date: 09/16/23 Discharging Provider: Juan Miguel Noel MD Primary Care Provider: Cindy CANCHOLA Condition at Discharge: Stable Discharge Disposition: 01 Home, Self Care - DIAGNOSES Admission Diagnoses: (1) Hyponatremia (2) Influenza Discharge Diagnoses with Status of Each Condition: (1) Hyponatremia- resolving (2) Influenza - resolved - HPI History of Present Illness: Yodit Noriega is a 58-year-old woman who presented to the emergency room because of an abnormal x-ray. She reports she recently had influenza. She reports she has not been able to keep any food down recently and has had several episodes of vomiting. Chest x-ray revealed opacities in her right upper lobe, right middle lobe, right lower lobe left upper lobe, lingula and lower lobe.She was evaluated at a local clinic and diagnosed with influenza B. Patient is alert and answering all questions. She does complain of weakness. Laboratory workup revealed a serum sodium of 113. White blood cell count is normal at 9.8K and differential revealed 23 bands. - HOSPITAL COURSE Hospital Course: Yodit Noriega is a 66-year-old was admitted to the intensive care unit due to her severely low sodium of 113 mEq. She was diagnosed with influenza and received empiric antibiotics for possible secondary pneumonia. Her serum sodium increased very quickly during the first day of her hospitalization and she received multiple doses of DDAVP and free water to slow the rate of increase of her serum sodium and actually lower the serum sodium to an acceptable level for the first 48 hours. Her serum sodium slowly increased over the next 5 days and she is now stable for discharge to home. During her hospitalization she was empirically treated with ceftriaxone and doxycycline for a possible secondary pneumonia. She initially required oxygen and was weaned to off prior to discharge. A repeat chest x-ray done on the day of discharge revealed resolving bilateral pulmonary infiltrates. - ALLERGIES Allergies/Adverse Reactions: Allergies Allergy/AdvReac Type Severity Reaction Status Date / Time No Known Drug Allergies Allergy Verified 09/10/23 14:14 - MEDICATIONS Home Medications: Ambulatory Orders Medication Instructions Recorded Confirmed Sodium Chloride [Salt Tab] 1 gm PO DAILY #3 tablet 09/16/23 - PHYSICAL EXAM AT DISCHARGE General Appearance: positive: No acute distress, Alert Eyes Bilateral: positive: Conjunctivae nml, No scleral icterus Neck: positive: No JVD Respiratory: positive: Chest non-tender, No respiratory distress, Breath sounds nml Cardiovascular: positive: Regular rate & rhythm, No murmur Abdomen: positive: Non-tender, Nml bowel sounds, No distention - LABS Result Diagrams: 09/15/23 04:46 09/16/23 05:16 - FOLLOW UP Follow Up: Follow-up with primary care provider JESIKA Garcia in 1 to 2 weeks. - TIME SPENT Time Spent in Discharge (Minutes): 32 ( 32 minutes coordinating discharge and discussing treatment with patient.)
--- NOTE | 2023-09-16 15:41 | Discharge Plan ---
Discharge Plan Problem Reviewed?: Yes Disposition: 01 Home, Self Care Condition: Stable Diet: Regular Activity Restrictions: Activity as Tolerated Shower Restrictions: No Driving Restrictions: No Weight Bearing: Full Weight Instruction Topics: Hyponatremia Dc Health Concerns: History of Present Illness: Yodit Noriega is a 58-year-old woman who presented to the emergency room because of an abnormal x-ray. She reports she recently had influenza. She reports she has not been able to keep any food down recently and has had several episodes of vomiting. Chest x-ray revealed opacities in her right upper lobe, right middle lobe, right lower lobe left upper lobe, lingula and lower lobe.She was evaluated at a local clinic and diagnosed with influenza B. Patient is alert and answering all questions. She does complain of weakness. Laboratory workup revealed a serum sodium of 113. White blood cell count is n ormal at 9.8K and differential revealed 23 bands. Hospital Course: Yodit Noriega is a 66-year-old was admitted to the intensive care unit due to her severely low sodium of 113 mEq. She was diagnosed with influenza and received empiric antibiotics for possible secondary pneumonia. Her serum sodium increased very quickly during the first day of her hospitalization and she received multiple doses of DDAVP and free water to slow the rate of increase of her serum sodium and actually lower the serum sodium to an acceptable level for the first 48 hours. Her serum sodium slowly increased over the next 5 days and she is now stable for discharge to home. During her hospitalization she was empirically treated with ceftriaxone and doxycycline for a possible secondary pneumonia. She initially required oxygen and was weaned to off prior to discharge. A repeat chest x-ray done on the day of discharge revealed resolving bilateral pulmonary infiltrates. The etiology of patient's hyponatremia is not clear but most likely secondary to SIADH and may be related to her viral illness/pneumonia. Patient is now stable for discharge to home. CODE STATUS upon discharge: Full code Plan of Treatment: 1. Take all medications as prescribed. 2. Please continue to walk and exercise upon discharge as tolerated. 3. Please continue to take 1 salt tablet (1 gram) each day and keep your appointment with your primary care provider, Cindy CANCHOLA. Recommend obtaining a serum sodium after that visit and follow-up with her with regards to the result. If your serum sodium is low (less than 130), please increase your salt tablets to 1 tablet 23 times each day. If you are serum sodium is between 130 and 135, recommend continuing 1 salt tablet each day. If your serum sodium is greater than 135, recommend discontinuing salt tablets. Recommend that patient's start with 1 salt tablet each day (1 g). The amount of salt tablets she takes each day can be adjusted to maintain her serum sodium. Goal would be to maintain her serum sodium between [id number]. Recommend that she not take more than 9 g a day. If she needs more than 9 g a day I would recommend she follow-up with her primary care provider. 4. Recommend following your serum sodium intermittently with goal of weaning off salt tablets. 5. Recommend obtaining another chest x-ray in approximately 6 weeks to evaluate for resolution of your opacities/pneumonia in your lung jain. Care Goals: Goals to return to baseline functioning and eventually discontinue salt tablets. Assessment: In Summary Yodit Noriega presented to the emergency room with an abnormal chest x-ray. She was diagnosed with influenza and was treated with empiric antibiotic coverage with ceftriaxone and doxycycline because she is there was concern she may have a secondary bacterial infection. She was admitted to the intensive care unit due to the fact that she had a severe hyponatremia. The etiology of her hyponatremia was not determined but most likely related related to her underlying viral illness. 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 Patient's serum sodium was increased by approximately 6 mmol/L each day and her current serum sodium is 132 mmol/L. She will continue to take salt tablets as an outpatient and follow-up with her primary care provider. The amount of salt tablets taken each day can be adjusted to maintain her serum sodium. She most likely will continue to require intermittent blood draws to monitor her serum sodium. No Smoking: If you smoke, Please STOP! Call for help. Follow-up with: Cindy Lawson PA [Primary Care Provider] -
[2023-09-16 16:20] VITALS: BP 135/65; O2SAT 97
== END 2023-09-16 17:30 | disposition home or self-care (01) | DRG 640 ==
LOC: ED 13:37 → ICU 17:51 → MS2 09-15 06:42
PROVIDERS: ADMIT Internal Medicine; ATTEND Internal Medicine
DX: E87.1 Hypo-osmolality and hyponatremia (principal); J10.00 Influenza due to other identified influenza virus with unspecified type of pneumonia; R11.0 Nausea; R09.02 Hypoxemia; E86.0 Dehydration; H66.002 Acute suppurative otitis media without spontaneous rupture of ear drum, left ear; Z96.649 Presence of unspecified artificial hip joint
CPT/HCPCS: 36415; 71046; 80048; 80053; 81001; 82330; 83690; 83735; 84100; 84132; 84295; 85025; 85379; 87150; 94640; 94761; 96374; 96375; 99285; A9270; J1170; J1650; J2597; J7040; J7060; 81003; 87086

== ENCOUNTER 2023-09-18 10:38 | Outpatient (CLI) | payer OTHER ==
[2023-09-18 18:19] LABS: CALCIUM 8.8 mg/dL (8.5-10.3); CREATININE 0.6 mg/dL (0.6-1.3)
== END 2023-09-18 10:39 | disposition home or self-care (01) ==
LOC: LAB.N 10:38
PROVIDERS: ATTEND Physician Assistant Medical
DX: K52.9 Noninfective gastroenteritis and colitis, unspecified (principal)
CPT/HCPCS: 36415; 80048

== ENCOUNTER 2023-10-05 15:47 | Outpatient (CLI) | payer OTHER ==
[2023-10-05 15:59] LABS: BASOPHILS % (AUTO) 0.6 %; EOSINOPHILS # (AUTO) 0.1 10^3/uL (0.0-0.7); HCT - HEMATOCRIT 34.3 % (37.0-47.0); HGB - HEMOGLOBIN 10.6 g/dL (12.0-16.0); LYMPHOCYTES # (AUTO) 1.7 10^3/uL (1.5-3.5); LYMPHOCYTES % (AUTO) 24.3 %; MEAN CORPUSCULAR HEMOGLOBIN 29.5 pg (27.0-31.0); MEAN CORPUSCULAR HGB CONC 30.9 g/dL (32.0-36.0); MEAN CORPUSCULAR VOLUME 95.5 fL (81.0-99.0); MEAN PLATELET VOLUME 8.2 fL (7.9-10.8); MONOCYTES # (AUTO) 0.6 10^3/uL (0.0-1.0); MONOCYTES % (AUTO) 8.5 %; NEUTROPHILS # (AUTO) 4.5 10^3/uL (1.5-6.6); NEUTROPHILS % (AUTO) 64.5 %; PLT - PLATELET COUNT 314 10^3/uL (130-450); RED BLOOD COUNT 3.59 10^6/uL (4.20-5.40); RED CELL DISTRIBUTION WIDTH 13.2 % (12.0-15.0); WHITE BLOOD COUNT 6.9 x10^3/uL (4.8-10.8)
[2023-10-05 16:13] LABS: ALBUMIN 3.5 g/dL (3.2-5.5); ALBUMIN/GLOBULIN RATIO 1.1 (1.0-2.2); BILIRUBIN,TOTAL 0.2 mg/dL (0.2-1.0); POTASSIUM 4.5 mmol/L (3.5-4.5); TOTAL PROTEIN 6.7 g/dL (6.4-8.9)
--- NOTE | 2023-10-05 17:44 | XRAY Report ---
PROCEDURE: Chest 2V INDICATIONS: INFLUENZA PNEUMONIA TECHNIQUE: 2 views of the chest were acquired. COMPARISON: Chest x-ray 09/16/2023 FINDINGS: Surgical changes and devices: None. Lungs and pleura: Similar versus minimally less prominent appearance of bilateral pulmonary opacitie s. Mediastinum: Mediastinal contours appear normal. Heart size is normal. Bones and chest wall: No suspicious bony lesions. Overlying soft tissues appear unremarkable. IMPRESSION: Similar versus slightly less prominent appearance of bilateral pulmonary opacities most consistent wi th pneumonia. Continued interval follow-up is recommended to document resolution. Reviewed by: Nicki Hunt MD on 10/05/2023 5:43 PM PDT Approved by: Nicki Hunt MD on 10/05/2023 5:43 PM PDT Station ID: [id number]
== END 2023-10-05 15:48 | disposition home or self-care (01) ==
LOC: EEVIPCON 15:47 → DI 15:47
PROVIDERS: ATTEND Physician Assistant Medical
DX: J11.00 Influenza due to unidentified influenza virus with unspecified type of pneumonia (principal); E87.1 Hypo-osmolality and hyponatremia; D64.9 Anemia, unspecified
CPT/HCPCS: 36415; 80053; 85025

== ENCOUNTER 2023-10-15 17:49 | Outpatient (CLI) | payer OTHER ==
[2023-10-15] MEDS ORDERED: iohexoL-300 100 ML VIAL ONE (18:11)
[2023-10-15] MEDS: iohexoL-300 100 ML VIAL IVP ONE (18:36)
--- NOTE | 2023-10-16 12:27 | CT Report ---
PROCEDURE: Chest W INDICATIONS: INFLUENZA PNA CONTRAST: 100ml omnipaque TECHNIQUE: After the administration of intravenous contrast, a CT scan of the chest was performed. Images were recorded and evaluated at appropriate window settings. Reformats: axial MIP of the chest, coronal and sagittal. For radiation dose reduction, the following was used: automated exposure control, adjustme nt of mA and/or kV according to patient size. COMPARISON: Radiograph 09/10/2023, 10/05/2023. FINDINGS: Image quality: Diagnostic. Chest wall and lower neck: No thyroid nodule which requires sonographic follow up. No axillary or sup raclavicular adenopathy by size. Lungs and pleura: Peripheral, mid to upper lobe predominant groundglass and interlobular bands, with mild residual consolidation. Mediastinum: Heart size is normal. No pericardial effusion. No large vessel abnormality. No mediastin al adenopathy by size criteria. Bones: No aggressive osseous abnormality. Upper Abdomen: Subcentimeter hemangiomas at the liver dome. IMPRESSION: Suspected developing organizing pneumonia in the mid to upper lung zones. Consider repeat CT in 2-3 m [facility] for follow-up and to exclude underlying masslike lesion. Reviewed by: Jameel Hubbard MD on 10/16/2023 12:26 PM PDT Approved by: Jameel Hubbard MD on 10/16/2023 12:26 PM PDT Station ID: [id number]
== END 2023-10-15 17:50 | disposition home or self-care (01) ==
LOC: DI 17:49
PROVIDERS: ATTEND Physician Assistant Medical
DX: J11.00 Influenza due to unidentified influenza virus with unspecified type of pneumonia (principal)
CPT/HCPCS: 71260; Q9967

== ENCOUNTER 2023-12-10 09:15 | Outpatient (CLI) | payer OTHER ==
--- NOTE | 2023-12-10 10:24 | XRAY Report ---
PROCEDURE: Chest 2V INDICATIONS: ACUTE COUGH TECHNIQUE: 2 views of the chest were acquired. COMPARISON: 10/15/2023. FINDINGS: Surgical changes and devices: None. Lungs and pleura: No pleural effusions or pneumothorax. Significant improvement in mid-upper lung zo ne opacities bilaterally. There is mild residual scarring in this regions.. Mediastinum: Mediastinal contours appear normal. Heart size is normal. Bones and chest wall: No suspicious bony lesions. Overlying soft tissues appear unremarkable. IMPRESSION: Opacities in the mid-upper lung zones bilaterally have significantly improved with mild residual scar ring. No new focal pulmonary consolidations. Reviewed by: Cayetano Wahl MD on 12/10/2023 10:23 AM PDT Approved by: Cayetano Wahl MD on 12/10/2023 10:23 AM PDT Station ID: [id number]
== END 2023-12-10 09:30 | disposition home or self-care (01) ==
LOC: DI.N 09:15
PROVIDERS: ATTEND Physician Assistant Medical
DX: R05.1 Acute cough (principal); J98.4 Other disorders of lung; R91.8 Other nonspecific abnormal finding of lung field

== ENCOUNTER 2023-12-31 13:41 | Outpatient (CLI) | payer OTHER ==
[2023-12-31] MEDS ORDERED: iohexoL-300 100 ML VIAL ONE (13:46)
[2023-12-31] MEDS: iohexoL-300 100 ML VIAL IVP ONE (14:39)
--- NOTE | 2024-01-01 10:07 | CT Report ---
PROCEDURE: Chest W INDICATIONS: PNA CONTRAST: 100ml [id number] TECHNIQUE: After the administration of intravenous contrast, a CT scan of the chest was performed. Images were recorded and evaluated at appropriate window settings. Reformats: axial MIP of the chest, coronal and sagittal. For radiation dose reduction, the following was used: automated exposure control, adjustme nt of mA and/or kV according to patient size. COMPARISON: CT 10/15/2023, x-ray 09/10/2023, 10/05/2023, 12/10/2023 FINDINGS: Image quality: Diagnostic. Chest wall and lower neck: No thyroid nodule which requires sonographic follow up. No breast mass. No axillary or supraclavicular adenopathy by size. Lungs and pleura: Resolved consolidation in the upper lung zones, with mild residual groundglass. No pleural effusions. No pneumothorax. No suspicious pulmonary nodules which require follow up. Calcif ied granuloma. Mediastinum: Heart size is normal. No pericardial effusion. No large vessel abnormality. No mediastin al adenopathy by size criteria. Bones: No aggressive osseous abnormality. Upper Abdomen: Subcentimeter hemangiomas at the liver dome. IMPRESSION: Resolved consolidation in the upper lung zones, with mild residual groundglass. Findings are most con sistent with near complete resolution of organizing pneumonia. Reviewed by: Jameel Hubbard MD on 01/01/2024 9:06 AM PRATIK Approved by: Jameel Hubbard MD on 01/01/2024 9:06 AM PRATIK Station ID: [id number]
== END 2023-12-31 13:42 | disposition home or self-care (01) ==
LOC: LAB 13:41
PROVIDERS: ATTEND Physician Assistant Medical
DX: J11.00 Influenza due to unidentified influenza virus with unspecified type of pneumonia (principal)
CPT/HCPCS: 71260; Q9967

== ENCOUNTER 2024-01-06 08:46 | Outpatient (CLI) | payer OTHER ==
[2024-01-06 12:13] LABS: BASOPHILS % (AUTO) 0.3 %; EOSINOPHILS # (AUTO) 0.1 10^3/uL (0.0-0.7); EOSINOPHILS % (AUTO) 2.3 %; HCT - HEMATOCRIT 39.1 % (37.0-47.0); HGB - HEMOGLOBIN 12.8 g/dL (12.0-16.0); LYMPHOCYTES # (AUTO) 1.3 10^3/uL (1.5-3.5); MEAN CORPUSCULAR HEMOGLOBIN 30.8 pg (27.0-31.0); MEAN CORPUSCULAR HGB CONC 32.7 g/dL (32.0-36.0); MEAN PLATELET VOLUME 10.2 fL (7.9-10.8); MONOCYTES # (AUTO) 0.3 10^3/uL (0.0-1.0); MONOCYTES % (AUTO) 5.7 %; NEUTROPHILS # (AUTO) 3.9 10^3/uL (1.5-6.6); NEUTROPHILS % (AUTO) 68.5 %; PLT - PLATELET COUNT 184 10^3/uL (130-450); RED BLOOD COUNT 4.16 10^6/uL (4.20-5.40); RED CELL DISTRIBUTION WIDTH 13.8 % (12.0-15.0); WHITE BLOOD COUNT 5.7 x10^3/uL (4.8-10.8)
[2024-01-06 12:37] LABS: ALBUMIN 4.5 g/dL (3.2-5.5); ALBUMIN/GLOBULIN RATIO 1.8 (1.0-2.2); ALKALINE PHOSPHATASE 61 IU/L (42-121); ALT ALANINE AMINOTRANSFERASE 12 IU/L (10-60); AST ASPARTATE AMINOTRANSFERASE 20 IU/L (10-42); BILIRUBIN,TOTAL 0.4 mg/dL (0.2-1.0); BUN - BLOOD UREA NITROGEN 16 mg/dL (6-20); CALCIUM 9.3 mg/dL (8.5-10.3); CARBON DIOXIDE - CO2 28 mmol/L (21-32); CHLORIDE 102 mmol/L (101-111); CHOL/HDL RATIO 2.3 (<4.4); CHOLESTEROL 211 mg/dL; CREATININE 0.9 mg/dL (0.6-1.3); GFR - MDRD 64 (>89); GLUCOSE 99 mg/dL (74-104); HDL CHOLESTEROL 92 mg/dL; LDL CHOLESTEROL,CALCULATED 100 mg/dL; LDL/HDL RATIO 1.1 (<4.4); POTASSIUM 4.3 mmol/L (3.5-4.5); SODIUM 136 mmol/L (135-145); TRIGLYCERIDES 94 mg/dL; VLDL CHOLESTEROL 19 mg/dL
[2024-01-06 12:46] LABS: THYROID STIMULATING HORMONE 1.81 uIU/mL (0.34-5.60)
== END 2024-01-06 08:47 | disposition home or self-care (01) ==
LOC: LAB.N 08:46
PROVIDERS: ATTEND Physician Assistant Medical
DX: Z00.00 Encounter for general adult medical examination without abnormal findings (principal)
CPT/HCPCS: 36415; 80053; 80061; 83721; 84443; 85025